=== PATIENT | female | born 1950 | race Caucasian/White ===

== ENCOUNTER → 2018-10-03 | Outpatient (CLI) | payer MEDICARE ==
--- NOTE | 2018-10-04 11:37 | MM ---
Reason for exam: screening (asymptomatic). Last mammogram was performed 1 year and 2 months ago. History: Taking estrogen for 8 years. Physical Findings: A clinical breast exam by your physician is recommended on an annual basis and results should be correlated with mammographic findings. MG 3D Screening Mammo W/Cad Bilateral CC and MLO view(s) were taken. Prior study comparison: July 23, 2017, mammogram, performed at [facility]. June 21, 2016, mammogram, performed at [facility]. The breast tissue is heterogeneously dense. This may lower the sensitivity of mammography. There are benign appearing round calcifications bilaterally. There is no discrete abnormality. ASSESSMENT: Benign, BI-RAD 2 RECOMMENDATION: Routine screening mammogram of both breasts in 1 year.
== END | disposition home or self-care (01) ==
LOC: RADMAMWWP 07:37
PROVIDERS: ATTEND Family Medicine
DX: Z12.31 Encounter for screening mammogram for malignant neoplasm of breast (principal)
CPT/HCPCS: 77063; 77067

== ENCOUNTER → 2020-02-05 | Outpatient (CLI) | payer MEDICARE ==
--- NOTE | 2020-02-06 13:58 | MM ---
Reason for exam: screening (asymptomatic). Last mammogram was performed 1 year and 4 months ago. History: Taking estrogen for 8 years. Physical Findings: A clinical breast exam by your physician is recommended on an annual basis and results should be correlated with mammographic findings. MG 3D Screening Mammo W/Cad Bilateral CC and MLO view(s) were taken. Prior study comparison: October 03, 2018, bilateral MG 3d screening mammo w/cad. July 23, 2017, mammogram, performed at [facility]. The breast tissue is heterogeneously dense. This may lower the sensitivity of mammography. No significant changes when compared with prior studies. ASSESSMENT: Benign, BI-RAD 2 RECOMMENDATION: Routine screening mammogram of both breasts in 1 year.
== END | disposition home or self-care (01) ==
LOC: RADMAMWWP 10:03
PROVIDERS: ATTEND Family Medicine
DX: Z12.31 Encounter for screening mammogram for malignant neoplasm of breast (principal)
CPT/HCPCS: 77063; 77067

== ENCOUNTER 2020-12-31 15:43 | Inpatient (IN) | payer MEDICARE ==
[2020-12-31] MEDS ORDERED: MORPHINE SULFATE 4 MG/ML SYRINGE IV STA (16:40)
[2020-12-31] MEDS ORDERED: ONDANSETRON 4 MG/2 ML VIAL IVP STA (16:40)
--- NOTE | 2020-12-31 16:42 | ED ---
General Adult HPI - General Chief complaint: Fall Stated complaint: fall hip pain Time Seen by Provider: 12/31/20 16:17 Source: patient, EMS Mode of arrival: EMS Limitations: physical limitation - History of Present Illness Initial comments: Dictation was produced using [employer] dictation software. please excuse any grammatical, word or spelling errors. Chief Complaint: 70-year-old female past nuchal history of diabetes presents with right hip pain. History of Present Illness: This 70-year-old female she was cleaning up her house that she just sold. She was in the palmar movement boxes when she took a step and lost her balance. She tripped over some PVC piping. She landed laterally on her right side. She states she noticed immediate pain to the right hip. She was unable to stand. Event occurred approximately 3 PM. EMS was called patient is brought to the emergency room. Prior to arrival patient was given some Zofran and fentanyl. Patient has any numbness and paresthesias to the lower extremity. The ROS documented in this emergency department record has been reviewed and confirmed by me. Those systems with pertinent positive or negative responses have been documented in the HPI. All other systems are other negative and/or noncontributory. PHYSICAL EXAM: General Impression: Alert and oriented x3, not in acute distress HEENT: Normocephalic atraumatic, extra-ocular movements intact, pupils equal and reactive to light bilaterally, mucous membranes moist. Cardiovascular: Heart regular rate and rhythm Chest: Able to complete full sentences, no retractions, no tachypnea Abdomen: abdomen soft, non-tender, non-distended, no organomegaly Musculoskeletal: Pulses present and equal in all extremities, no peripheral edema Motor: no focal deficits noted Right lower extremity: Shortened right lower extremity compared to the left, there is tenderness to palpation over the right hip joint Neurological: CN II-XII grossly intact, no focal motor or sensory deficits noted Skin: Intact with no visualized rashes Psych: Normal affect and mood ED course: 70-year-old female presents to the emergency department for hip pain after fall. Vital signs upon arrival are within acceptable limits. X-ray of the hip shows laterally displaced intertrochanteric fracture of the right femur with foreshortening. Chest x-ray is unremarkable. Case is discussed with Ortho Dr. Vee requested placing patient in a traction splint. He also requested that patient be admitted to his service with consultation to medicine for medical clearance. Patient agreeable plan. - Related Data Home Medications Medication Instructions Recorded Confirmed Aspirin EC [Ecotrin Low Dose] 81 mg PO DAILY 12/31/20 12/31/20 Hernán/D3/Mag11/Zinc/Traffic Manager/Leonard/Bor 1 tab PO BID 12/31/20 12/31/20 [Caltrate 600+D Plus Tablet] Cholecalciferol [Vitamin D3 (25 25 mcg PO Q48H 12/31/20 12/31/20 Mcg = 1000 Iu)] Citalopram Hydrobromide [CeleXA] 10 mg PO DAILY 12/31/20 12/31/20 Fenofibrate [Lofibra] 160 mg PO DAILY 12/31/20 12/31/20 L.acidoph,Paracasei, B.lactis 1 cap PO BID 12/31/20 12/31/20 [Probiotic] Levothyroxine Sodium [Synthroid] 125 mcg PO DAILY 12/31/20 12/31/20 Mv-Min/Folic/Vit K/Lut/Ylik350 1 tab PO DAILY 12/31/20 12/31/20 [Alive Women's 50 Plus Tablet] Omeprazole 20 mg PO Q48H 12/31/20 12/31/20 Turmeric Root Extract [Turmeric] 500 mg PO DAILY 12/31/20 12/31/20 buPROPion HCL [Wellbutrin XL] 150 mg PO DAILY 12/31/20 12/31/20 estradioL [estradioL (Once Weekly) 1 patch TRANSDERM Q7D 12/31/20 12/31/20 0.05 mg Patch] metFORMIN HCL [Glucophage] 1,000 mg PO BID 12/31/20 12/31/20 sitaGLIPtin [Januvia] 100 mg PO DAILY 12/31/20 12/31/20 Allergies Allergy/AdvReac Type Severity Reaction Status Date / Time hydrocodone [From Vicodin] Allergy Confusion Verified 12/31/20 17:58 Penicillins Allergy Unknown Verified 12/31/20 17:58 Sulfa (Sulfonamide Allergy Rash/Hives Verified 12/31/20 17:58 Antibiotics) Review of Systems ROS Statement: Those systems with pertinent positive or pertinent negative responses have been documented in the HPI. ROS Other: All systems not noted in ROS Statement are negative. Past Medical History Past Medical History: Diabetes Mellitus History of Any Multi-Drug Resistant Organisms: None Reported Past Surgical History: Cholecystectomy, Hysterectomy, Orthopedic Surgery Additional Past Surgical History / Comment(s): lt knee Past Psychological History: Anxiety Smoking Status: Never smoker Past Alcohol Use History: None Reported Past Drug Use History: None Reported General Exam Limitations: physical limitation Course Vital Signs 12/31/20 16:09 Temperature 98.8 F Pulse Rate 70 Respiratory 18 Rate Blood Pressure 135/52 O2 Sat by Pulse 94 L Oximetry Disposition Clinical Impression: Fall, Hip fracture Disposition: ADMITTED IP TO THIS HOSP Condition: Fair Referrals: Omid Christian MD [Primary Care Provider] - 1-2 days
--- NOTE | 2020-12-31 17:38 | XR ---
EXAMINATION TYPE: XR chest 1V DATE OF EXAM: 12/31/2020 COMPARISON: NONE HISTORY: Fall TECHNIQUE: Single frontal view of the chest is obtained. FINDINGS: There is no focal air space opacity, pleural effusion, or pneumothorax seen. The cardiac silhouette size is within normal limits. Elevation of the right hemidiaphragm. The osseous structur es are intact. IMPRESSION: No acute process.
--- NOTE | 2020-12-31 17:48 | XR ---
EXAMINATION TYPE: XR Hip RT and AP Pelvis, XR femur RT DATE OF EXAM: 12/31/2020 COMPARISON: None HISTORY: Fall TECHNIQUE: A single AP view of the pelvis is obtained. Two views of the right femur and hip are obtai nurys. FINDINGS: Femur: There is intertrochanteric fracture of the right femur with one shaft width of lateral displac ement of the distal fracture fragment. There is approximately 5 cm of foreshortening Hip: Two views of right hip show no acute fracture or dislocation of the right hip joint. IMPRESSION: There is a laterally displaced intertrochanteric fracture of the right femur with foresh ortening.
[2020-12-31] MEDS ORDERED: ONDANSETRON 4 MG/2 ML VIAL IVP PRN (18:36)
[2020-12-31] MEDS ORDERED: NALOXONE 0.4 MG/ML 1 ML VIAL IV PRN (18:36)
[2020-12-31 19:44] LABS: Basophils % (A) 0 %; Eosinophils # (A) 0.1 k/uL (0-0.7); Eosinophils % (A) 1 %; HCT 34.2 % (34.0-46.0); HGB 11.1 gm/dL (11.4-16.0); Lymphocytes # (A) 0.6 k/uL (1.0-4.8); Lymphocytes % (A) 7 %; MCH 28.9 pg (25.0-35.0); MCHC 32.5 g/dL (31.0-37.0); Mean Platelet Volume 7.2; Monocytes # (A) 0.4 k/uL (0-1.0); Monocytes % (A) 5 %; Neutrophils # (A) 7.6 k/uL (1.3-7.7); Neutrophils % (A) 86 %; Platelet Count 376 k/uL (150-450); RBC 3.84 m/uL (3.80-5.40); RDW 14.3 % (11.5-15.5); WBC 8.9 k/uL (3.8-10.6)
[2020-12-31] MEDS ORDERED: TRANEXAMIC ACID 1,000 MG in SODIUM CHLORIDE 0.9% 100 ML IVPB ONE (19:46)
[2020-12-31] MEDS: MORPHINE SULFATE 4 MG/ML SYRINGE IV PRN (19:47)
[2020-12-31] MEDS ORDERED: ROPIVACAINE/EPI/CLONIDINE/KET 50 ML SYRINGE MISCELLANE PRN (19:47)
[2020-12-31] MEDS: SODIUM CHLORIDE 0.9% 1,000 ML IV SCH (19:48)
[2020-12-31 19:53] LABS: Calcium 9.1 mg/dL (8.4-10.2); Potassium 3.9 mmol/L (3.5-5.1)
[2020-12-31 19:58] LABS: Prothrombin Time 10.4 sec (9.0-12.0)
[2020-12-31 20:15] LABS: Partial Thromboplastin Time 21.4 sec (22.0-30.0)
--- NOTE | 2020-12-31 22:26 | P.HPOR ---
History of Present Illness H&P Date: 12/31/20 This patient is a 70- year old female with a past medical history of diabetes that presented to [facility] emergency department on 12/31/20 with complaints of right hip pain following a grounf level fall. Patient states she was cleaning her house she just sold. She states she tripped over a PVC pipe, and lost her balance and fell directly onto the right hip. She experienced immediate pain and was unable to get off the ground. EMS was called and the patient was transported to [facility]. X-rays in the emergency department revealed a right displaced intertrochanteric hip fracture. Patient was admitted under the care of Dr. Vee with a consult placed to internal medicine for pre-operative medical clearance. Patient is seen and examined bedside this evening. Patient states her right hip pain is currently well-controlled. She denies pain or injury besides her right hip. Patient has a history of left TKA performed by Dr. Leos in 2005. Patient is not on blood thinners. Her last hemoglobin A1C was around 7. She denies chest pain, shortness of breath, nausea. She denies numbness or tingling of the right lower extremity. Vital signs stable. Past Medical History Past Medical History: Diabetes Mellitus History of Any Multi-Drug Resistant Organisms: None Reported Past Surgical History: Cholecystectomy, Hysterectomy, Orthopedic Surgery Additional Past Surgical History / Comment(s): lt knee Past Psychological History: Anxiety Smoking Status: Never smoker Past Alcohol Use History: None Reported Past Drug Use History: None Reported Medications and Allergies Home Medications Medication Instructions Recorded Confirmed Type Aspirin EC [Ecotrin Low Dose] 81 mg PO DAILY 12/31/20 12/31/20 History Hernán/D3/Mag11/Zinc/Project Development Coordinator/Leonard/Bor 1 tab PO BID 12/31/20 12/31/20 History [Caltrate 600+D Plus Tablet] Cholecalciferol [Vitamin D3 (25 25 mcg PO Q48H 12/31/20 12/31/20 History Mcg = 1000 Iu)] Citalopram Hydrobromide [CeleXA] 10 mg PO DAILY 12/31/20 12/31/20 History Fenofibrate [Lofibra] 160 mg PO DAILY 12/31/20 12/31/20 History L.acidoph,Paracasei, B.lactis 1 cap PO BID 12/31/20 12/31/20 History [Probiotic] Levothyroxine Sodium [Synthroid] 125 mcg PO DAILY 12/31/20 12/31/20 History Mv-Min/Folic/Vit K/Lut/[id number] 1 tab PO DAILY 12/31/20 12/31/20 History [Alive Women's 50 Plus Tablet] Omeprazole 20 mg PO Q48H 12/31/20 12/31/20 History Turmeric Root Extract [Turmeric] 500 mg PO DAILY 12/31/20 12/31/20 History buPROPion HCL [Wellbutrin XL] 150 mg PO DAILY 12/31/20 12/31/20 History estradioL [estradioL (Once Weekly) 1 patch TRANSDERM Q7D 12/31/20 12/31/20 History 0.05 mg Patch] metFORMIN HCL [Glucophage] 1,000 mg PO BID 12/31/20 12/31/20 History sitaGLIPtin [Januvia] 100 mg PO DAILY 12/31/20 12/31/20 History Allergies Allergy/AdvReac Type Severity Reaction Status Date / Time hydrocodone [From Vicodin] Allergy Confusion Verified 12/31/20 17:58 Penicillins Allergy Unknown Verified 12/31/20 17:58 Sulfa (Sulfonamide Allergy Rash/Hives Verified 12/31/20 17:58 Antibiotics) Physical Examination On examination, patient is laying in bed in no apparent distress. She is alert and orientated x3. Her head appears normocephalic and atrauamtic. Her breathing appears non-labored. Bilateral upper extremities show no obvious deformities or signs of trauma. Left lower extremity show no obvious deformities or signs of trauma. Healed incision of the left knee consistent with prior TKA. On inspection of the right hip, there are no open wounds or lacerations. Right lower extremity is shortened and externally rotated. Pain with palpation of the hip and thigh. Thigh is soft and compressible. Knee, lower leg, ankle, foot are non-tender. ROM of the hip is not tested at this time. Patient has good strength and ROM of the right ankle. Motor and sensory function intact right lower ext remity. Dorsalis pedis pulse palpable, the right lower extremity is warm and well perfused. Calves are soft and non-tender to palpation bilaterally. Results Right hip x-ray 12/31/20: Right displaced intertrochanteric hip fracture. - Labs Labs: Abnormal Lab Results - Last 24 Hours (Table) 12/31/20 12/31/20 12/31/20 Range/Units 19:35 19:35 19:41 Hgb 11.1 L (11.4-16.0) gm/dL Lymphocytes # 0.6 L (1.0-4.8) k/uL APTT 21.4 L (22.0-30.0) sec BUN 21 H (7-17) mg/dL Glucose 159 H (74-99) mg/dL H & H 12/31/20 Range/Units 19:41 Hgb 11.1 L (11.4-16.0) gm/dL Hct 34.2 (34.0-46.0) % Coagulation 12/31/20 Range/Units 19:35 INR 1.0 (<1.2) Result Diagrams: 12/31/20 19:41 12/31/20 19:35 Assessment and Plan Assessment: Right displaced intertrochanteric hip fracture Plan: - The clinical and imaging findings were discussed with the patient. The patient was discussed with Dr. Vee. Recommend surgical fixation of the right intertrochanteric hip fracture with a short gamma nail. Surgical risks were disc ussed, patient gave verbal consent for surgery. We will plan for surgery tomorrow morning, pending medical clearance. - Internal medicine has been consulted for pre-operative medical clearance. - Pain management as needed. - NPO diet at midnight.
[2021-01-01] MEDS: MORPHINE SULFATE 4 MG/ML SYRINGE IV PRN ×3 (01:57→20:41)
[2021-01-01] MEDS ORDERED: ZOLPIDEM 5 MG TAB PO PRN (02:12)
--- NOTE | 2021-01-01 02:35 | P.CONS ---
History of Present Illness - Reason for Consult Consult date: 12/31/20 pre op medical clearance Requesting physician: Garo Vee - Chief Complaint right hip pain - History of Present Illness 70-year-old female with diabetes mellitus with A1c of 7 She was cleaning her house today when she tripped with some PVC pipes and fell at ground level she hit her right side and immediately was unable to get up due to pain and called EMS and was brought to the hospital she denies any associated head injury or loss of consciousness she denies any history of falling. She is not on any blood thinners. She denies any associated palpitations shortness of breath dizziness or lightheadedness. She thinks the fall was purely accidental. She reports that she is in good health denies any recent history of heart attack CHF seizures arrhythmia or palpitations. She is an active person able to do house chores and climb 2 flights of stairs with no limitations she denies any exertional dyspnea or anginal-like symptoms. In the ED she was evaluated and was found to have right femur intertrochanteric fracture she is admitted to surgery and medicine consult. For preop clearance Review of Systems Pertinent positives as noted in HPI. All other systems were reviewed and are negative Past Medical History Past Medical History: Diabetes Mellitus History of Any Multi-Drug Resistant Organisms: None Reported Past Surgical History: Cholecystectomy, Hysterectomy, Orthopedic Surgery Additional Past Surgical History / Comment(s): lt knee Past Psychological History: Anxiety Smoking Status: Never smoker Past Alcohol Use History: None Reported Past Drug Use History: None Reported - Past Family History Family Family Medical History: No Reported History Medications and Allergies Home Medications Medication Instructions Recorded Confirmed Type Aspirin EC [Ecotrin Low Dose] 81 mg PO DAILY 12/31/20 12/31/20 History Hernán/D3/Mag11/Zinc/Business Consultant/Leonard/Bor 1 tab PO BID 12/31/20 12/31/20 History [Caltrate 600+D Plus Tablet] Cholecalciferol [Vitamin D3 (25 25 mcg PO Q48H 12/31/20 12/31/20 History Mcg = 1000 Iu)] Citalopram Hydrobromide [CeleXA] 10 mg PO DAILY 12/31/20 12/31/20 History Fenofibrate [Lofibra] 160 mg PO DAILY 12/31/20 12/31/20 History L.acidoph,Paracasei, B.lactis 1 cap PO BID 12/31/20 12/31/20 History [Probiotic] Levothyroxine Sodium [Synthroid] 125 mcg PO DAILY 12/31/20 12/31/20 History Mv-Min/Folic/Vit K/Lut/Vokl650 1 tab PO DAILY 12/31/20 12/31/20 History [Alive Women's 50 Plus Tablet] Omeprazole 20 mg PO Q48H 12/31/20 12/31/20 History Turmeric Root Extract [Turmeric] 500 mg PO DAILY 12/31/20 12/31/20 History buPROPion HCL [Wellbutrin XL] 150 mg PO DAILY 12/31/20 12/31/20 History estradioL [estradioL (Once Weekly) 1 patch TRANSDERM Q7D 12/31/20 12/31/20 History 0.05 mg Patch] metFORMIN HCL [Glucophage] 1,000 mg PO BID 12/31/20 12/31/20 History sitaGLIPtin [Januvia] 100 mg PO DAILY 12/31/20 12/31/20 History Allergies Allergy/AdvReac Type Severity Reaction Status Date / Time hydrocodone [From Vicodin] Allergy Confusion Verified 12/31/20 17:58 Penicillins Allergy Unknown Verified 12/31/20 17:58 Sulfa (Sulfonamide Allergy Rash/Hives Verified 12/31/20 17:58 Antibiotics) Physical Exam Vitals: Vital Signs Temp Pulse Resp BP Pulse Ox 12/31/20 19:14 98.2 F 88 18 145/61 99 12/31/20 16:09 98.8 F 70 18 135/52 94 L Intake and Output 12/31/20 12/31/20 12/31/20 06:59 14:59 22:59 Other: Weight 78.018 kg Constitutional: No acute distress, conversant, pleasant Eyes: Anicteric sclerae, moist conjunctiva, Pupils equal round reactive to light ENMT: NC/AT Oropharynx clear, no erythema, or exudates Neck: Supple, FROM, no masses, or JVD No carotid bruits No thyromegaly Lungs: Clear to auscultation Clear to percussion Normal respiratory effort, no accessory muscle use Cardiovascular: Heart regular in rate and rhythm, No murmurs, gallops, or rubs No peripheral edema Abdominal: Soft Nontender, no guarding, rebound or rigidity Abdomen moving with respiration Normoactive bowel sounds No hepatomegaly, No splenomegaly No palpable mass No abdominal wall hernia noted Skin: Normal temperature, tone, texture, turgor No induration No subcutaneous nodules No rash, lesions No ulcers Extremities: Right hip there is no open wounds or cuts no bruising soft to the touch no swelling, capillary refill is immediate No digital cyanosis No clubbing Pedal pulses intact and symmetrical Radial pulses intact and symmetrical No calf tenderness Psychiatric: Alert and oriented to person, place and time Appropriate affect fair judgement Neuro Muscles Strength 5/5 in bilateral upper extremity and left lower extremity. Right lower extremity is limited exam due to fracture of the right hip Sensation to light touch grossly present throughout Cranial nerves II-XII grossly intact No focal sensory deficits Lymphatics: no palpable cervical or supraclavicular , or inguinal lymph nodes Results CBC & Chem 7: 12/31/20 19:41 12/31/20 19:35 Labs: Abnormal Lab Results - Last 24 Hours (Table) 12/31/20 12/31/20 12/31/20 Range/Units 19:35 19:35 19:41 Hgb 11.1 L (11.4-16.0) gm/dL Lymphocytes # 0.6 L (1.0-4.8) k/uL APTT 21.4 L (22.0-30.0) sec BUN 21 H (7-17) mg/dL Glucose 159 H (74-99) mg/dL Assessment and Plan Assessment: Acute right femoral intertrochanteric fracture Management per orthopedics, anticoagulation and pain control. Nothing by mouth after midnight in anticipation of surgery Mild anemia hemoglobin 11.1 Patient denies any GI bleeding Diabetes mellitus with A1c of 7 Continue with insulin sliding scale Patient is full code patient is 70year old Female, presetned with right hip pain found to have right femoral intertrochanteric fracture. Patient denies any recent history or symptoms of congestive heart failure, mycardial infarction, syncope, arrhythmia, palpitation, or exertional dyspnea. Patient denies any past medical history of stroke, CAD, CHF, CKD. Patient does have history of diabetes mellitus. Patient is functional at baseline at >4 METs she is able to climb two flight of stairs with no limitations, she is able to perform house chores. Patient labs reviewed, EKG reviewed showed normal sinus rhythm. Patient is scheduled for orthopedic surgery to fix left hip fracture. This is of moderate risk, with past medical history of diabetes mellitus. Patient can proceed to surgery with moderate but acceptable perioperative cardiovascular risk factors. This has been explained to the patient , all questions answered, patient verbalized understanding and agreement.
[2021-01-01] MEDS: SODIUM CHLORIDE 0.9% 1,000 ML IV SCH ×3 (03:13→18:06)
[2021-01-01] MEDS ORDERED: ROPIVACAINE 246.25 MG, EPINEPHrine 0.5 MG, KETOROLAC 30 MG, cloNIDine HCL/PF 80 MCG, WA... MISCELLANE PRN ×5 (05:00)
[2021-01-01] MEDS ORDERED: TRANEXAMIC ACID 1,000 MG in SODIUM CHLORIDE 0.9% 100 ML IVPB PRN (06:00)
[2021-01-01 07:36] LABS: Glucose,Whole Blood 124 mg/dL (75-99)
[2021-01-01] MEDS: INSULIN ASPART (NovoLOG) 100 UNIT/ML VIAL SQ SCH ×3 (07:59→16:32)
[2021-01-01] MEDS: LEVOTHYROXINE 125 MCG TAB PO SCH (08:03)
[2021-01-01] MEDS ORDERED: NEOSTIGMINE 1 MG/ML 10 ML VIAL ONE (08:55)
[2021-01-01] MEDS ORDERED: ROCURONIUM 10 MG/ML (5 ML VIAL) IV ONE (08:55)
[2021-01-01] MEDS ORDERED: PROPOFOL 10 MG/ML 20 ML VIAL IV ONE (08:55)
[2021-01-01] MEDS ORDERED: GLYCOPYRROLATE 0.2 MG/ML 2 ML VIAL ONE (08:55)
[2021-01-01] MEDS ORDERED: ONDANSETRON 4 MG/2 ML VIAL ONE (08:55)
[2021-01-01] MEDS ORDERED: SODIUM CHLORIDE 0.9% 100 ML BAG ONE (08:55)
[2021-01-01] MEDS ORDERED: MIDAZOLAM 2 MG/2 ML VIAL ONE (08:55)
[2021-01-01] MEDS ORDERED: TRANEXAMIC ACID 1,000 MG/10 ML VIAL ONE (08:55)
[2021-01-01] MEDS ORDERED: LIDOCAINE 1% INJ 10MG/ML (20 ML MDV) ONE (08:55)
[2021-01-01] MEDS ORDERED: PHENYLEPHRINE-0.9% NACL SYG 1,000 MCG/10 ML SYRINGE ONE (08:55)
[2021-01-01] MEDS ORDERED: ePHEDrine SULFATE/0.9% NACL/PF 50 MG/5 ML SYRINGE IV ONE (08:55)
[2021-01-01] MEDS ORDERED: SUCCINYLCHOLINE CHLORIDE 100 MG/5 ML SYR IV ONE (08:55)
[2021-01-01] MEDS ORDERED: fentaNYL (PF) 50 MCG/ML 2 ML AMP ONE (08:55)
[2021-01-01] MEDS ORDERED: SODIUM CHLORIDE 0.9% 1,000 ML IV ONE (09:00)
[2021-01-01] MEDS ORDERED: SODIUM CHLORIDE 0.9% 100 ML with ceFAZolin 2,000 MG IV ONE ×2 (09:10)
[2021-01-01] MEDS ORDERED: LACTATED RINGERS 1,000 ML IV ONE ×2 (10:04)
[2021-01-01] MEDS ORDERED: HYDROcodone/APAP 5-325MG 1 EACH TAB PO PRN ×2 (11:27)
[2021-01-01] MEDS ORDERED: HYDROmorphone 0.2 MG/1 ML SYRINGE IVP PRN (11:27)
[2021-01-01] MEDS ORDERED: HYDROmorphone 0.5 MG/0.5 ML SYRINGE IVP PRN ×2 (11:27)
[2021-01-01] MEDS ORDERED: hydrOXYzine pamoate 25 MG CAP PO PRN (11:27)
--- NOTE | 2021-01-01 11:28 | P.PN ---
Subjective Progress Note Date: 01/01/21 Patient is scheduled for surgery today. No acute events overnight. Objective - Vital Signs Vital signs: Vital Signs Temp 98.5 F 01/01/21 08:00 Pulse 64 01/01/21 08:00 Resp 18 01/01/21 08:00 BP 117/58 01/01/21 08:00 Pulse Ox 98 01/01/21 08:00 Intake & Output 12/31/20 01/01/21 01/01/21 18:59 06:59 18:59 Intake Total 1300 Output Total 950 700 Balance -950 600 Weight 78.018 kg 78.018 kg Intake: IV 1300 Output: Urine 950 600 Estimated Blood Loss 100 Other: Voiding Method Indwelling Catheter Indwelling Catheter - Exam General: The patient is awake and alert, in no distress Eye: there is normal conjunctiva bilaterally. Neck: The neck is supple, there is no JVD. Cardiovascular: Normal S1-S2, no S3-S4, no murmurs. Respiratory: Lungs clear to auscultation bilaterally Gastrointestinal: Abdomen is soft, nontender Musculoskeletal: There is no pedal edema. Neurological:. Speech is normal. Skin: Skin is warm and dry - Labs CBC & Chem 7: 12/31/20 19:41 12/31/20 19:35 Labs: Abnormal Lab Results - Last 24 Hours (Table) 12/31/20 12/31/20 12/31/20 Range/Units 19:35 19:35 19:41 Hgb 11.1 L (11.4-16.0) gm/dL Lymphocytes # 0.6 L (1.0-4.8) k/uL APTT 21.4 L (22.0-30.0) sec BUN 21 H (7-17) mg/dL Glucose 159 H (74-99) mg/dL POC Glucose (mg/dL) (75-99) mg/dL 01/01/21 Range/Units 07:35 Hgb (11.4-16.0) gm/dL Lymphocytes # (1.0-4.8) k/uL APTT (22.0-30.0) sec BUN (7-17) mg/dL Glucose (74-99) mg/dL POC Glucose (mg/dL) 124 H (75-99) mg/dL Assessment and Plan Assessment: 70-year-old female with past medical history noted below that presented to the emergency room after sustaining a mechanical fall at home. In the ED she was evaluated and was found to have right femur intertrochanteric fracture she is admitted to orthopedic surgery with medicine consult. Acute right femoral intertrochanteric fracture Management per orthopedics, anticoagulation and pain control. Plan for surgery today Mild anemia hemoglobin 11.1 Patient denies any GI bleeding We'll continue to monitor closely Diabetes mellitus with A1c of 7 Continue with insulin sliding scale Patient is full code
--- NOTE | 2021-01-01 11:35 | P.OP ---
Date of Procedure: 01/01/21 Preoperative Diagnosis: 1. Right completely displaced intertrochanteric hip fracture 2. Type 2 diabetes on metformin Postoperative Diagnosis: Same Procedure(s) Performed: Operative fixation of right intertrochanteric hip fracture with short intramedullary hip screw Anesthesia: KARIME Surgeon: Garo Vee Medical Record Assistant #1: Henok Cancino Estimated Blood Loss (ml): 200 IV fluids (ml): 1,200 Pathology: none sent Condition: stable Disposition: PACU Indications for Procedure: The patient is a very pleasant 70-year-old female with a medical history significant for type 2 diabetes who while moving yesterday sustained a ground- level fall resulting in a displaced intertrochanteric hip fracture. She was seen in our emergency department, found to have a hip fracture and admitted under my care. She was seen preoperatively by internal medicine and cleared for surgery. I met with the patient this morning to discuss treatment options. My recommendation was to proceed with operative fixation with a short intramedullary hip screw. We also discussed that her fracture was an irreducible variant that may require a formal open reduction. She understood this. We discussed the potential risks and complications of surgery including but certainly not limited to risks from anesthesia, infection, delayed wound healing, damage to local blood vessels or nerves, nonunion, malunion, hardware collapse, progression of hip arthritis, need for further surgery, symptomatically hardware, DVT, PE, other medical complications, and inability to regain preinjury level of function, dissatisfaction with her surgical outcome, and possibly loss of life or limb. The patient also understands and acknowledges that other, less common complications are possible. She provided both her verbal and written consent to go forward with surgery. Description of Procedure: The patient was identified in preoperative holding and the correct operative extremity was marked with my initials. I reviewed the procedure with the patient and all of their questions were answered. The patient was then brought back to the operating room by anesthesia. She was given preoperative antibiotics and a general anesthesia on her stretcher. Ángela table boots were placed on her feet. She was carefully transferred onto the Ángela table and a perineal post was placed. The right arm was draped across her quality to facilitate intraoperative positioning and secured with a pillow and tape. The left arm was placed in the well-padded arm curtis. The left leg was scissored with Marydel table an abductor. A timeout was performed identifying the correct patient, operative extremity, and procedure. A provisional reduction was then performed using traction, internal rotation, and slight adduction. Fluoroscopy was brought in and on an AP view the fracture appeared relatively well reduced with mild distraction to the fracture site. The lateral view showed almost anatomic reduction. The right leg was then prepped and draped in the standard sterile fashion. I began by making a small 3 cm incision just proximal to the tip of the greater trochanter in line with the femur. An awl was placed just medial to the tip of the greater trochanter on the AP view and colinear with the canal on the lateral view. A 3.2 mm guide pin was advanced down to the proximal femur. An opening reamer was placed over the guidepin and brought down to the tip of the greater trochanter. As the reamer was turned on it was medial to the fracture line but it did show some displacement of the inferior femoral neck. A longitudinal incision was made over the lateral femur and a bone hook was placed around the medial aspect of the neck to hold the reduction. The opening reamer was then passed easily down to the proximal canal. The opening reamer 3.2 mm guide pin were removed and a long ball-tipped guidewire was placed and verified with biplanar fluoroscopy. I then sequentially reamed up to 12-1/2 mm and dispensed a short 11 mm diameter nail. This was placed over the guidewire and countersunk so that the lag screw would be in the low center position on the femoral head. The triple sleeve was placed the targeting arm in a incision was made over the lateral femur. The triple sleeve was brought up the lateral cortex of the femur and a guidepin was placed in the low center position on the AP view and in the center to slightly posterior position on the lateral view. This was reamed and a partially threaded lag screw was placed, again using the bone hook to hold reduction while the screw was fully seated. Finally distal interlocking screw was placed using the targeting arm and a triple sleeve. Final fluoroscopic images were taken. All wounds were thoroughly irrigated, injected with local anesthetic, and closed in layers. All instrument, sponge, and sharp counts were correct. Sterile dressings were applied. The patient was then carefully taken off the Marydel table, transferred to a gurney, extubated, and brought to recovery having tolerated the procedure well. Henok Cancino PA-C was required as a skilled assistant printer floor covering due to the complexity of the procedure, specifically requiring open reduction. Plan: The patient can weight-bear as tolerated on her right leg. 2 doses postoperative antibiotics. DVT prophylaxis with aspirin. Internal medicine for perioperative medical management. Discharge planning.
[2021-01-01 12:07] LABS: Glucose,Whole Blood 153 mg/dL (75-99)
[2021-01-01 12:21] LABS: Glucose,Whole Blood 167 mg/dL (75-99)
[2021-01-01] MEDS: LACTATED RINGERS 1,000 ML IV SCH ×2 (12:24→20:38)
[2021-01-01 12:55] LABS: Basophils % (A) 0 %; Eosinophils % (A) 0 %; HCT 32.2 % (34.0-46.0); Lymphocytes # (A) 0.5 k/uL (1.0-4.8); Lymphocytes % (A) 7 %; MCH 29.1 pg (25.0-35.0); MCHC 31.1 g/dL (31.0-37.0); MCV 93.6 fL (80.0-100.0); Mean Platelet Volume 7.1; Monocytes # (A) 0.4 k/uL (0-1.0); Monocytes % (A) 6 %; Neutrophils # (A) 6.3 k/uL (1.3-7.7); Neutrophils % (A) 86 %; Platelet Count 333 k/uL (150-450); RBC 3.45 m/uL (3.80-5.40); RDW 13.9 % (11.5-15.5); WBC 7.2 k/uL (3.8-10.6)
--- NOTE | 2021-01-01 14:11 | FL ---
Fluoroscopy HISTORY: Open reduction internal fixation 3.4 minutes fluoroscopy time supplied to the referring clinician. 9 intraoperative C-arm images docu ment the procedure. See dictated report from orthopedic surgery.
[2021-01-01 16:34] LABS: Glucose,Whole Blood 135 mg/dL (75-99)
[2021-01-01] MEDS: ASPIRIN 81 MG PO SCH (20:36)
[2021-01-01] MEDS: SENNOSIDES-DOCUSATE SODIUM 1 EACH TAB PO SCH (20:37)
[2021-01-01 20:49] LABS: Glucose,Whole Blood 205 mg/dL (75-99)
[2021-01-01] MEDS ORDERED: INSULIN ASPART (NovoLOG) 100 UNIT/ML VIAL SQ ONE (21:51)
[2021-01-02] MEDS: SODIUM CHLORIDE 0.9% 1,000 ML IV SCH (01:15)
[2021-01-02] MEDS ORDERED: IBUPROFEN 400 MG TAB PO PRN (01:27)
[2021-01-02] MEDS: LEVOTHYROXINE 125 MCG TAB PO SCH (05:47)
[2021-01-02 06:51] LABS: Glucose,Whole Blood 147 mg/dL (75-99)
[2021-01-02] MEDS: LACTATED RINGERS 1,000 ML IV SCH (07:22)
[2021-01-02] MEDS: INSULIN ASPART (NovoLOG) 100 UNIT/ML VIAL SQ SCH ×3 (08:30→17:55)
[2021-01-02] MEDS: ASPIRIN 81 MG PO SCH ×2 (08:30→21:01)
[2021-01-02] MEDS: MORPHINE SULFATE 4 MG/ML SYRINGE IV PRN ×2 (08:30→14:14)
--- NOTE | 2021-01-02 09:59 | P.PN ---
Subjective Progress Note Date: 01/02/21 This patient is a 70-year-old female who is status-post operative fixation of right intertrochanteric hip fracture with short intramedullary hip screw on 01/01/[address] Vee. Today's post-operative day #1. The patient is seen and examined bedside. The patient states she is experiencing mild pain in the right hip, although this is well-controlled. She states she believes the [place] is making her itchy. She denies trouble breathing or shortness of breath. Patient is up to the bedside chair this morning. She states she overall feels well. She tolerated her breakfast well. She denies chest pain, shortness breath, nausea, vomiting, fevers, chills. She denies numbness or tingling of the right lower extremity. Vital signs stable. Objective - Vital Signs Vital signs: Vital Signs Temp 98.5 F 01/02/21 08:00 Pulse 76 01/02/21 08:00 Resp 18 01/02/21 08:00 BP 126/67 01/02/21 08:00 Pulse Ox 93 L 01/02/21 08:00 Intake & Output 01/01/21 01/02/21 01/02/21 18:59 06:59 18:59 Intake Total 1300 Output Total 850 750 Balance 450 -750 Intake: IV 1300 Output: Urine 750 750 Estimated Blood Loss 100 Other: Voiding Method Indwelling Catheter Indwelling Catheter - Exam On examination, the patient is sitting up in the bedside chair in no apparent distress. She is alert and oriented 3. On inspection of the right hip, there are 3 clean, dry, intact surgical dressings in place. No bleeding or drainage through the dressing. Mild swelling of the thigh, thigh is soft and compressible. Patient is has good strength and range of motion of the right ankle. Motor and sensory function is intact of the right lower extremity. Dorsalis pedis pulse +2, right lower extremity is warm and well-perfused. Compression cuffs in place bilaterally. Calves are soft and nontender to palpation bilaterally. - Labs CBC & Chem 7: 01/01/21 12:35 12/31/20 19:35 Labs: Abnormal Lab Results - Last 24 Hours (Table) 01/01/21 01/01/21 01/01/21 Range/Units 12:05 12:20 12:35 RBC 3.45 L (3.80-5.40) m/uL Hgb 10.0 L (11.4-16.0) gm/dL Hct 32.2 L (34.0-46.0) % Lymphocytes # 0.5 L (1.0-4.8) k/uL POC Glucose (mg/dL) 153 H 167 H (75-99) mg/dL 01/01/21 01/01/21 01/02/21 Range/Units 16:32 20:37 06:51 RBC (3.80-5.40) m/uL Hgb (11.4-16.0) gm/dL Hct (34.0-46.0) % Lymphocytes # (1.0-4.8) k/uL POC Glucose (mg/dL) 135 H 205 H 147 H (75-99) mg/dL Assessment and Plan Assessment: Status-post operative fixation of right intertrochanteric hip fracture with short intramedullary hip screw on 01/01/21. Post-operative day #1. Plan: - Weight-bearing as tolerated on operative extremity. Up with assistance, up with a walker. - Physical therapy for gait and balance training. - 2 doses of postoperative antibiotics complete. - Aspirin 81 mg daily for DVT prophylaxis. - Pain management as needed. [place] discontinued. - Internal medicine for maggie-operative medical management. - Case management consulted the for discharge planning.
[2021-01-02 11:26] LABS: Glucose,Whole Blood 140 mg/dL (75-99)
[2021-01-02] MEDS: Acetaminophen-Codeine 300-30mg TAB PO PRN ×2 (12:15→16:22)
[2021-01-02 16:20] LABS: Glucose,Whole Blood 189 mg/dL (75-99)
--- NOTE | 2021-01-02 16:27 | P.PN ---
Subjective Patient is doing fairly well today. She's having difficulty getting out of bed secondary to pain. No acute events overnight reported by nursing staff. Objective - Vital Signs Vital signs: Vital Signs Temp 98.9 F 01/02/21 14:00 Pulse 86 01/02/21 14:00 Resp 19 01/02/21 14:00 BP 143/66 01/02/21 14:00 Pulse Ox 94 L 01/02/21 14:00 Intake & Output 01/01/21 01/02/21 01/02/21 18:59 06:59 18:59 Intake Total 1300 Output Total 850 750 Balance 450 -750 Intake: IV 1300 Output: Urine 750 750 Estimated Blood Loss 100 Other: Voiding Method Indwelling Catheter Indwelling Catheter - Exam General: The patient is awake and alert, in no distress Eye: there is normal conjunctiva bilaterally. Neck: The neck is supple, there is no JVD. Cardiovascular: Normal S1-S2, no S3-S4, no murmurs. Respiratory: Lungs clear to auscultation bilaterally Gastrointestinal: Abdomen is soft, nontender Musculoskeletal: There is no pedal edema. Neurological:. Speech is normal. Skin: Skin is warm and dry - Labs CBC & Chem 7: 01/01/21 12:35 12/31/20 19:35 Labs: Abnormal Lab Results - Last 24 Hours (Table) 01/01/21 01/01/21 01/02/21 Range/Units 16:32 20:37 06:51 POC Glucose (mg/dL) 135 H 205 H 147 H (75-99) mg/dL 01/02/21 01/02/21 Range/Units 11:25 16:19 POC Glucose (mg/dL) 140 H 189 H (75-99) mg/dL Assessment and Plan Assessment: 70-year-old female with past medical history noted below that presented to the emergency room after sustaining a mechanical fall at home. In the ED she was evaluated and was found to have right femur intertrochanteric fracture she is admitted to orthopedic surgery with medicine consult. Acute right femoral intertrochanteric fracture Management per orthopedics, anticoagulation and pain control. Plan for surgery today Mild anemia hemoglobin 11.1 Patient denies any GI bleeding We'll continue to monitor closely Diabetes mellitus with A1c of 7 Continue with insulin sliding scale Patient is full code Discharge planning, PT/OT, possible need for ECF for rehab
[2021-01-02] MEDS: SENNOSIDES-DOCUSATE SODIUM 1 EACH TAB PO SCH (21:01)
[2021-01-03] MEDS: Acetaminophen-Codeine 300-30mg TAB PO PRN ×2 (02:34→11:11)
[2021-01-03] MEDS: LEVOTHYROXINE 125 MCG TAB PO SCH (05:55)
[2021-01-03 06:55] LABS: Glucose,Whole Blood 231 mg/dL (75-99)
[2021-01-03] MEDS: INSULIN ASPART (NovoLOG) 100 UNIT/ML VIAL SQ SCH ×3 (08:36→17:14)
[2021-01-03] MEDS: ASPIRIN 81 MG PO SCH ×2 (08:36→22:06)
[2021-01-03 09:04] LABS: Basophils # (A) 0.03 X 10*3/uL (0.00-0.10); Basophils % (A) 0.5 %; Eosinophils # (A) 0.03 X 10*3/uL (0.04-0.35); Eosinophils % (A) 0.5 %; HCT 27.4 % (37.2-46.3); HGB 8.1 g/dL (12.0-15.0); Lymphocytes # (A) 0.58 X 10*3/uL (0.90-5.00); Lymphocytes % (A) 9.6 %; MCHC 29.6 g/dL (32.0-37.0); MCV 94.8 fL (80.0-97.0); Mean Platelet Volume 10.2 fL (9.5-12.2); Monocytes # (A) 0.53 X 10*3/uL (0.20-1.00); Monocytes % (A) 8.7 %; Neutrophils # (A) 4.88 X 10*3/uL (1.80-7.70); Neutrophils % (A) 80.4 %; Platelet Count 277 X 10*3/uL (140-440); RBC 2.89 X 10*6/uL (4.10-5.20); RDW 14.6 % (11.5-14.5); WBC 6.07 X 10*3/uL (4.50-10.00)
--- NOTE | 2021-01-03 10:36 | P.PN ---
Subjective Patient was seen and evaluated by me this morning. She was seated up in the chair. She told me that she did well with physical therapy. No acute events overnight. Objective - Vital Signs Vital signs: Vital Signs Temp 99.2 F 01/03/21 08:00 Pulse 79 01/03/21 08:00 Resp 18 01/03/21 08:00 BP 138/66 01/03/21 08:00 Pulse Ox 95 01/03/21 08:00 Intake & Output 01/02/21 01/03/21 01/03/21 18:59 06:59 18:59 Output Total 750 Balance -750 Output: Urine 750 Other: Voiding Method Indwelling Catheter # Voids 3 1 - Exam General: The patient is awake and alert, in no distress Eye: there is normal conjunctiva bilaterally. Neck: The neck is supple, there is no JVD. Cardiovascular: Normal S1-S2, no S3-S4, no murmurs. Respiratory: Lungs clear to auscultation bilaterally Gastrointestinal: Abdomen is soft, nontender Musculoskeletal: There is no pedal edema. Neurological:. Speech is normal. Skin: Skin is warm and dry - Labs CBC & Chem 7: 01/03/21 06:08 12/31/20 19:35 Labs: Abnormal Lab Results - Last 24 Hours (Table) 01/02/21 01/02/21 01/03/21 Range/Units 11:25 16:19 06:08 RBC 2.89 L (4.10-5.20) X 10*6/uL Hgb 8.1 L (12.0-15.0) g/dL Hct 27.4 L (37.2-46.3) % MCHC 29.6 L (32.0-37.0) g/dL RDW 14.6 H (11.5-14.5) % Absolute Nucleated RBC 0.03 H (0.00-0.00) X 10*3/uL Lymphocytes # 0.58 L (0.90-5.00) X 10*3/uL Eosinophils # 0.03 L (0.04-0.35) X 10*3/uL NRBC/100 WBC Diff 0.5 H (0.0-0.0) /100 WBCS POC Glucose (mg/dL) 140 H 189 H (75-99) mg/dL 01/03/21 Range/Units 06:50 RBC (4.10-5.20) X 10*6/uL Hgb (12.0-15.0) g/dL Hct (37.2-46.3) % MCHC (32.0-37.0) g/dL RDW (11.5-14.5) % Absolute Nucleated RBC (0.00-0.00) X 10*3/uL Lymphocytes # (0.90-5.00) X 10*3/uL Eosinophils # (0.04-0.35) X 10*3/uL NRBC/100 WBC Diff (0.0-0.0) /100 WBCS POC Glucose (mg/dL) 231 H (75-99) mg/dL Assessment and Plan Assessment: 70-year-old female with past medical history noted below that presented to the emergency room after sustaining a mechanical fall at home. In the ED she was evaluated and was found to have right femur intertrochanteric fracture she is admitted to orthopedic surgery with medicine consult. Acute right femoral intertrochanteric fracture Status post IM screw fixation orthopedic surgery Pain management and DVT prophylaxis per orthopedic current on aspirin twice daily Postoperative blood loss anemia We'll continue to monitor closely Diabetes mellitus with A1c of 7 Continue with insulin sliding scale Patient is full code Discharge planning, PT/OT, possible need for ECF for rehab
--- NOTE | 2021-01-03 11:29 | P.PN ---
Subjective Progress Note Date: 01/03/21 This patient is a 70-year-old female who is status-post operative fixation of right intertrochanteric hip fracture with short intramedullary hip screw on 01/01/[address] Vee. Today's post-operative day #2. The patient is seen and examined bedside. The patient states her pain is well-controlled at this time. We switched her pain medication to tylenol #3 yesterday, as [place] was making her itchy. She states she has not been itchy since starting the Tylenol #3. She is tolerating her diet well. She is urinating without issue. She has not had a bowel movement post- operatively, although she is passing gas and denies abdominal pain. She denies numbness or tingling of the right lower extremity. Vital signs stable. Objective - Vital Signs Vital signs: Vital Signs Temp 99.2 F 01/03/21 08:00 Pulse 79 01/03/21 08:00 Resp 18 01/03/21 08:00 BP 138/66 01/03/21 08:00 Pulse Ox 95 01/03/21 08:00 Intake & Output 01/02/21 01/03/21 01/03/21 18:59 06:59 18:59 Output Total 750 Balance -750 Output: Urine 750 Other: Voiding Method Indwelling Catheter # Voids 3 1 - Exam On examination, the patient is sitting up in bed in no apparent distress. She is alert and oriented 3. On inspection of the right hip, there are 3 clean, dry, intact surgical dressings in place. No bleeding or drainage through the dressing. Mild swelling of the thigh, thigh is soft and compressible. Patient is has good strength and range of motion of the right ankle. Motor and sensory function is intact of the right lower extremity. Dorsalis pedis pulse +2, right lower extremity is warm and well-perfused. Compression cuffs in place bilaterally. Calves are soft and nontender to palpation bilaterally. - Labs CBC & Chem 7: 01/03/21 06:08 12/31/20 19:35 Labs: Abnormal Lab Results - Last 24 Hours (Table) 01/02/21 01/02/21 01/03/21 Range/Units 11:25 16:19 06:08 RBC 2.89 L (4.10-5.20) X 10*6/uL Hgb 8.1 L (12.0-15.0) g/dL Hct 27.4 L (37.2-46.3) % MCHC 29.6 L (32.0-37.0) g/dL RDW 14.6 H (11.5-14.5) % Absolute Nucleated RBC 0.03 H (0.00-0.00) X 10*3/uL Lymphocytes # 0.58 L (0.90-5.00) X 10*3/uL Eosinophils # 0.03 L (0.04-0.35) X 10*3/uL NRBC/100 WBC Diff 0.5 H (0.0-0.0) /100 WBCS POC Glucose (mg/dL) 140 H 189 H (75-99) mg/dL 01/03/21 Range/Units 06:50 RBC (4.10-5.20) X 10*6/uL Hgb (12.0-15.0) g/dL Hct (37.2-46.3) % MCHC (32.0-37.0) g/dL RDW (11.5-14.5) % Absolute Nucleated RBC (0.00-0.00) X 10*3/uL Lymphocytes # (0.90-5.00) X 10*3/uL Eosinophils # (0.04-0.35) X 10*3/uL NRBC/100 WBC Diff (0.0-0.0) /100 WBCS POC Glucose (mg/dL) 231 H (75-99) mg/dL Assessment and Plan Assessment: Status-post operative fixation of right intertrochanteric hip fracture with short intramedullary hip screw on 01/01/21. Post-operative day #2. Plan: - Weight-bearing as tolerated on operative extremity. Up with assistance, up with a walker. - Physical therapy for gait and balance training. - 2 doses of postoperative antibiotics complete. - Aspirin 81 mg daily for DVT prophylaxis. - Pain management as needed. - Internal medicine for maggie-operative medical management. - Case management consulted the for discharge planning. Anticipate discharge to rehab tomorrow, pending medical clearance.
[2021-01-03 12:20] LABS: Glucose,Whole Blood 173 mg/dL (75-99)
[2021-01-03 16:48] LABS: Glucose,Whole Blood 208 mg/dL (75-99)
[2021-01-03 20:19] LABS: Glucose,Whole Blood 236 mg/dL (75-99)
[2021-01-03] MEDS: MORPHINE SULFATE 4 MG/ML SYRINGE IV PRN (22:06)
[2021-01-03] MEDS: SENNOSIDES-DOCUSATE SODIUM 1 EACH TAB PO SCH (22:06)
[2021-01-04] MEDS: Acetaminophen-Codeine 300-30mg TAB PO PRN ×4 (05:54→21:23)
[2021-01-04] MEDS: LEVOTHYROXINE 125 MCG TAB PO SCH (05:54)
[2021-01-04 07:12] LABS: Glucose,Whole Blood 179 mg/dL (75-99)
[2021-01-04] MEDS: INSULIN ASPART (NovoLOG) 100 UNIT/ML VIAL SQ SCH ×3 (07:17→16:55)
[2021-01-04] MEDS: ASPIRIN 81 MG PO SCH ×2 (07:17→21:22)
[2021-01-04 08:53] VITALS: RESP 16
[2021-01-04 09:14] LABS: African American GFR (CKD) >90 (>60 ml/min/1.73 sqM); Anion Gap 5 mmol/L; Blood Urea Nitrogen 11 mg/dL (7-17); Calcium 8.8 mg/dL (8.4-10.2); Carbon Dioxide 29 mmol/L (22-30); Chloride 105 mmol/L (98-107); Glucose 261 mg/dL (74-99); Non-African American GFR(CKD) >90 (>60 ml/min/1.73 sqM); Potassium 4.2 mmol/L (3.5-5.1); Sodium 139 mmol/L (137-145)
[2021-01-04 09:15] LABS: HCT 28.4 % (34.0-46.0); HGB 9.2 gm/dL (11.4-16.0); MCH 29.1 pg (25.0-35.0); MCHC 32.4 g/dL (31.0-37.0); Mean Platelet Volume 7.4; Platelet Count 406 k/uL (150-450); RBC 3.15 m/uL (3.80-5.40); RDW 14.3 % (11.5-15.5); WBC 6.7 k/uL (3.8-10.6)
--- NOTE | 2021-01-04 10:16 | P.PN ---
<Shivam Deshpande - Last Filed: 01/04/21 16:01> Subjective Progress Note Date: 01/04/21 Hospital course: Patient is a 70-year-old female with a past medical history of diabetes mellitus. She presented to the hospital on 12/31/20 with a chief complaint of fall resulting in right hip injury. Patient was found to have a right femur intertrochanteric fracture resulting in admission to orthopedic surgery team with Dr. Cancino and we have been consulted for continued medical management throughout patient's hospitalization. Physical exam: Patient seen and fully evaluated at bedside this morning. Patient sitting up in chair at this time. Patient reports she has been ambulatory in room and walking with walker with physical therapy. Patient reports currently pain is managed. She states currently pain 2-3 out of 10 at this time. Patient denies having any headache, lightheadedness, dizziness, chest pain, palpitations, or experiencing any numbness/tingling/weakness in her extremities. Patient denies having any postoperative nausea or vomiting and reports that she has been urinating without any difficulties. Vital signs reviewed and stable. General: Nontoxic, no distress and appears stated age. Derm: Skin warm and dry, normal coloration for ethnicity. Head: Atraumatic, normocephalic and symmetric. Eyes: EOMs intact, no lid lag, and anicteric sclera Mouth: no lip lesions, mucus membranes moist Cardiovascular: regular rate and rhythm with normal S1S2, no murmur, positive posterior tibial pulses bilaterally, and cap refill < 2 seconds. Lungs: Respirations even, regular, and unlabored on room air. Lungs CTA bilaterally, no rhonchi, no rales, no wheezing, and no accessory muscle usage. Abdominal: soft, nontender to palpation, no guarding, no appreciable organomegaly Ext: ROM intact. No gross muscle atrophy, no edema, no contractures Neuro: Speech clear, face symmetrical and CN II-XII grossly intact with no noted focal neuro deficits Psych: Alert and oriented to person, place, time, and situation. Appropriate and pleasant affect. Assessment and Plan of Care: Postoperative blood loss anemia is an expected outcome of the surgical procedure, improving -Morning hemoglobin resulting in 9.2. Status post intramedullary screw fixation of right intertrochanteric fracture Pain management, DVT prophylaxis, weightbearing, PT/OT per primary admitting orthopedic surgery team. Current DVT prophylaxis with aspirin twice a day. Diabetes mellitus type 2 with A1c of 7 Glycemic protocol with NovoLog sliding scale. Thank you for allowing us to participate in the care of this pleasant patient, patient is medically stable for discharge pending clearance of her primary adm itting orthopedic surgery team. Do not hesitate to contact us with questions. Someone can be reached from the [facility] hospitalist group all hours of the day at [phone] or via perfect serve. Objective - Vital Signs Vital signs: Vital Signs Temp 98.2 F 01/04/21 08:00 Pulse 74 01/04/21 08:00 Resp 16 01/04/21 08:00 BP 120/49 01/04/21 08:00 Pulse Ox 96 01/04/21 08:00 Intake & Output 01/03/21 01/04/21 01/04/21 18:59 06:59 18:59 Other: # Voids 3 2 - Labs CBC & Chem 7: 01/04/21 08:34 01/04/21 08:34 Labs: Abnormal Lab Results - Last 24 Hours (Table) 01/03/21 01/03/21 01/03/21 Range/Units 12:11 16:46 20:17 RBC (3.80-5.40) m/uL Hgb (11.4-16.0) gm/dL Hct (34.0-46.0) % Glucose (74-99) mg/dL POC Glucose (mg/dL) 173 H 208 H 236 H (75-99) mg/dL 01/04/21 01/04/21 01/04/21 Range/Units 07:11 08:34 08:34 RBC 3.15 L (3.80-5.40) m/uL Hgb 9.2 L (11.4-16.0) gm/dL Hct 28.4 L (34.0-46.0) % Glucose 261 H (74-99) mg/dL POC Glucose (mg/dL) 179 H (75-99) mg/dL <Maria Meier - Last Filed: 01/04/21 18:43> Subjective I reviewed the documentation as provided by the MARIA ISABEL above, who is the original author of this note. I agree with the documented assessment and plan, with the following changes: None Objective - Vital Signs Vital signs: Vital Signs Temp 98.2 F 01/04/21 14:00 Pulse 70 01/04/21 14:00 Resp 16 01/04/21 14:00 BP 115/57 01/04/21 14:00 Pulse Ox 98 01/04/21 14:00 Intake & Output 01/03/21 01/04/21 01/04/21 18:59 06:59 18:59 Other: # Voids 3 2 - Labs CBC & Chem 7: 01/04/21 08:34 01/04/21 08:34 Labs: Abnormal Lab Results - Last 24 Hours (Table) 01/03/21 01/04/21 01/04/21 Range/Units 20:17 07:11 08:34 RBC 3.15 L (3.80-5.40) m/uL Hgb 9.2 L (11.4-16.0) gm/dL Hct 28.4 L (34.0-46.0) % Glucose (74-99) mg/dL POC Glucose (mg/dL) 236 H 179 H (75-99) mg/dL 01/04/21 01/04/21 01/04/21 Range/Units 08:34 11:31 16:42 RBC (3.80-5.40) m/uL Hgb (11.4-16.0) gm/dL Hct (34.0-46.0) % Glucose 261 H (74-99) mg/dL POC Glucose (mg/dL) 185 H 167 H (75-99) mg/dL
[2021-01-04 11:32] LABS: Glucose,Whole Blood 185 mg/dL (75-99)
--- NOTE | 2021-01-04 11:44 | P.DS ---
Providers Date of admission: 12/31/20 18:36 Expected date of discharge: 01/04/21 Attending physician: Garo Vee Consults: 12/31/20 18:36 Consult Physician Routine Consulting Provider: Maria Meier Consult Reason/Comments: medical clearance Do you want consulting provider notified?: Yes Primary care physician: [facility] Course: This is a 70 year-old female who is admitted to [facility] on 12/31/20 after a ground-level fall and sustaining injury to the right hip. X-rays in the emergency department revealed an intertrochanteric fracture of the right hip. She is admitted to our service for surgical intervention and care. Patient was taken to surgery for operative fixation of her right hip fracture with a short intramedullary hip screw on 01/01/[address] Vee. The procedure was performed without complication or sequelae. The patient is doing fairly well post-operatively. Vital signs and labs are stable on postop erative day #3. Patient was examined bedside today. She states her pain is well-controlled on oral medication. She was up ambulating around her room yesterday. Patient is urinating without issue, she has not yet had a bowel movement. She denies abdominal pain and she is passing gas. Patient is tolerating her diet well. Patient denies chest pain, shortness of breath, nausea, vomiting, fevers, chi lls. Patient feels ready to transfer to rehab today. On examination, patient is alert and orientated x3. On inspection of the right hip, there are 3 healing incisions with no active drainage. No surrounding erythema, warmth. No signs of infection. There is mild swelling of the thigh. The thigh is soft and compressible. Patient has good strength and range of motion of the right ankle. Motor and sensory function is intact of the right lower extremity. Dorsalis pedis pulse +2. Right lower extremities warm and well perfused with brisk capillary refill distally. Calf is soft and nontender to palpation. No evidence of DVT. Patient is discharged to rehab in good condition, pending medical clearance. Patient will follow-up with Dr. Vee in the office in 2 weeks. Please see med rec for accurate list of discharge medication. Patient Condition at Discharge: Fair Plan - Discharge Summary Discharge Rx Participant: Yes New Discharge Prescriptions: New Acetaminophen-Codeine 300-30mg [Tylenol w/codeine #3] 1 tab PO Q4-6H PRN 7 Days #30 tablet PRN Reason: Pain Aspirin 81 mg PO BID 30 Days #60 tab Continue Turmeric Root Extract [Turmeric] 500 mg PO DAILY L.acidoph,Paracasei, B.lactis [Probiotic] 1 cap PO BID Cholecalciferol [Vitamin D3 (25 Mcg = 1000 Iu)] 25 mcg PO Q48H Citalopram Hydrobromide [CeleXA] 10 mg PO DAILY metFORMIN HCL [Glucophage] 1,000 mg PO BID estradioL [estradioL (Once Weekly) 0.05 mg Patch] 1 patch TRANSDERM Q7D buPROPion HCL [Wellbutrin XL] 150 mg PO DAILY Mv-Min/Folic/Vit K/Lut/Pxmt118 [Alive Women's 50 Plus Tablet] 1 tab PO DAILY Hernán/D3/Mag11/Zinc/Neonatal Social Worker/Leonard/Bor [Caltrate 600+D Plus Tablet] 1 tab PO BID sitaGLIPtin [Januvia] 100 mg PO DAILY Omeprazole 20 mg PO Q48H Levothyroxine Sodium [Synthroid] 125 mcg PO DAILY Fenofibrate [Lofibra] 160 mg PO DAILY Discontinued Aspirin EC [Ecotrin Low Dose] 81 mg PO DAILY Discharge Medication List Hernán/D3/Mag11/Zinc/Neonatal Social Worker/Leonard/Bor [Caltrate 600+D Plus Tablet] 1 tab PO BID 1 [History] Cholecalciferol [Vitamin D3 (25 Mcg = 1000 Iu)] 25 mcg PO Q48H 12/31/20 [History] Citalopram Hydrobromide [CeleXA] 10 mg PO DAILY 12/31/20 [History] Fenofibrate [Lofibra] 160 mg PO DAILY 12/31/20 [History] L.acidoph,Paracasei, B.lactis [Probiotic] 1 cap PO BID 12/31/20 [History] Levothyroxine Sodium [Synthroid] 125 mcg PO DAILY 12/31/20 [History] Mv-Min/Folic/Vit K/Lut/Somy229 [Alive Women's 50 Plus Tablet] 1 tab PO DAILY 12/31/20 [History] Omeprazole 20 mg PO Q48H 12/31/20 [History] Turmeric Root Extract [Turmeric] 500 mg PO DAILY 12/31/20 [History] buPROPion HCL [Wellbutrin XL] 150 mg PO DAILY 12/31/20 [History] estradioL [estradioL (Once Weekly) 0.05 mg Patch] 1 patch TRANSDERM Q7D 12/31/20 [History] metFORMIN HCL [Glucophage] 1,000 mg PO BID 12/31/20 [History] sitaGLIPtin [Januvia] 100 mg PO DAILY 12/31/20 [History] Acetaminophen-Codeine 300-30mg [Tylenol w/codeine #3] 1 tab PO Q4-6H PRN 7 Days #30 tablet 01/04/21 [Rx] Aspirin 81 mg PO BID 30 Days #60 tab 01/04/21 [Rx] Follow up Appointment(s)/Referral(s): Omid Christian MD [Primary Care Provider] - 1-2 days Garo Vee MD [Medical Doctor] - 2 Weeks Activity/Diet/Wound Care/Special Instructions: Weight-bear as tolerated on the operative leg with a walker. Pain management as needed. Aspirin for DVT prophylaxis. Daily dressing changes with adaptic, 4x4s, tegaderm. Follow-up in the office in [address] Vee. Call the office with any questions or concerns, Discharge Disposition: TRANSFER TO SNF/ECF
--- NOTE | 2021-01-04 15:34 | CDI ---
Documentation Clarification Form Date: 01/04/2021 03:12:19 PM From: Oneida Johnson RN CCDS Admit Date: 12/31/2020 06:36:00 PM Patient Name: Dulce Maria Winkler Visit Number: [id number] Discharge Date: ATTENTION: The Clinical Documentation Specialists (CDI) and [facility] Coding Staff appreciate your assistance in clarifying documentation. Please respond to the clarification below the line at the bottom and electronically sign. The CDI & [facility] Coding staff will review the response and follow-up if needed. Please note: Queries are made part of the Legal Health Record. If you have any questions, please contact the author of this message via ITS. Dr. Maria Meier Post-operative blood loss anemia is documented 01/03, medicine progress note and patient had Operative fixation of the right intertrochanteric hip fracture with short intramedullary hip screw, 01/01. Additional clarification is requested regarding the relationship, if any, that exists between the diagnosis and the procedure. Patients Admitting Diagnosis: Right completely displaced intertrochanteric hip fracture. Post-Operative Diagnosis: Same Procedure performed: Operative fixation of the right intertrochanteric hip fracture with short intramedullary hip screw History/Risk Factors: 70-year-old female presents to the ED via EMS after she tripped and fell hitting her right side and was unable to get up. Medical history: DM. Medicine consult 12/31 Clinical Indicators: Labs: 12/31 Hgb 11.1, 01/01 Hgb 10.0, 01/03 Hgb 8.1, 01/04 Hgb 9.2 Procedure Note 01/01: Estimated fluid loss during procedure 200ml. Procedure Note 01/01: IV fluids 1,200ml Medication List. 12/31 01/02 0.9NS 130mls/hr. 01/01 01/02 LR 100mls/hr. Ortho progress note 01/03: No bleeding or drainage through the dressing. Treatment: 12/31 01/04 Monitored H&H. What relationship, if any, exists between the diagnosis of post-operative blood loss anemia and the procedure: [ ] Post-operative blood loss anemia is a complication of surgical procedure [ x] Post-operative blood loss anemia is an expected outcome of the surgical procedure [ ] Other please specify ____ [ ] Unable to determine (Template Last Revised: May 2020) MTDD
[2021-01-04 16:44] LABS: Glucose,Whole Blood 167 mg/dL (75-99)
[2021-01-04] MEDS ORDERED: polyethylene glycoL 3350 17 GM POWD.PACK PO STA (20:37)
[2021-01-04 20:54] LABS: Glucose,Whole Blood 215 mg/dL (75-99)
[2021-01-04] MEDS: SENNOSIDES-DOCUSATE SODIUM 1 EACH TAB PO SCH (21:22)
[2021-01-05] MEDS: Acetaminophen-Codeine 300-30mg TAB PO PRN ×4 (02:48→20:03)
[2021-01-05] MEDS: LEVOTHYROXINE 125 MCG TAB PO SCH (05:55)
[2021-01-05 06:52] LABS: Glucose,Whole Blood 185 mg/dL (75-99)
[2021-01-05] MEDS: ASPIRIN 81 MG PO SCH ×2 (06:56→20:03)
[2021-01-05] MEDS: INSULIN ASPART (NovoLOG) 100 UNIT/ML VIAL SQ SCH ×3 (06:56→16:51)
--- NOTE | 2021-01-05 10:04 | P.PN ---
<Shivam Deshpande - Last Filed: 01/05/21 11:21> Subjective Progress Note Date: 01/05/21 Hospital course: Patient is a 70-year-old female with a past medical history of diabetes [facility]. She presented to the hospital on 12/31/20 with a chief complaint of fall resulting in right hip injury. Patient was found to have a right femur intertrochanteric fracture resulting in admission to orthopedic surgery team with Dr. Cancino and we have been consulted for continued medical management throughout patient's hospitalization. Pt pending discharge to rehab facility, currently pending insurance authorization. Physical exam: Patient seen and fully evaluated at bedside this morning. Patient resting in bed at time of assessment. Patient slightly discouraged regarding delayed discharged to rehabilitation facility. Patient updated that we are awaiting insurance authorization. Patient reports she continues to ambulate in room with walker. States pain is currently controlled. She continues to deny having any headache, lightheadedness, dizziness, chest pain, palpitations, or experiencing any numbness/tingling/weakness in her extremities. Vital signs reviewed and stable. General: Nontoxic, no distress and appears stated age. Derm: Skin warm and dry, normal coloration for ethnicity. Head: Atraumatic, normocephalic and symmetric. Eyes: EOMs intact, no lid lag, and anicteric sclera Mouth: no lip lesions, mucus membranes moist Cardiovascular: regular rate and rhythm with normal S1S2, no murmur, positive posterior tibial pulses bilaterally, and cap refill < 2 seconds. Lungs: Respirations even, regular, and unlabored on room air. Lungs CTA bilaterally, no rhonchi, no rales, no wheezing, and no accessory muscle usage. Abdominal: soft, nontender to palpation, no guarding, no appreciable organomegaly Ext: ROM intact. No gross muscle atrophy, no edema, no contractures Neuro: Speech clear, face symmetrical and CN II-XII grossly intact with no noted focal neuro deficits Psych: Alert and oriented to person, place, time, and situation. Appropriate and pleasant affect. Assessment and Plan of Care: Postoperative blood loss anemia is an expected outcome of the surgical procedure, improved -Hemoglobin stable at 9.2. Status post intramedullary screw fixation of right intertrochanteric fracture Pain management, DVT prophylaxis, weightbearing, PT/OT per primary admitting orthopedic surgery team. Current DVT prophylaxis with aspirin twice a day. Diabetes mellitus type 2 with A1c of 7 Glycemic protocol with NovoLog sliding scale. Thank you for allowing us to participate in the care of this pleasant patient, patient is medically stable for discharge pending clearance of her primary admitting orthopedic surgery team. Do not hesitate to contact us with questions. Someone can be reached from the [facility] hospitalist group all hours of the day at [phone] or via perfect serve. Objective - Vital Signs Vital signs: Vital Signs Temp 98.9 F 01/05/21 07:28 Pulse 68 01/05/21 07:28 Resp 16 01/05/21 07:28 BP 131/57 01/05/21 07:28 Pulse Ox 97 01/05/21 07:28 Intake & Output 01/04/21 01/05/21 01/05/21 18:59 06:59 18:59 Intake Total 236 Balance 236 Intake: Oral 236 Other: Voiding Method Indwelling Catheter # Voids 5 3 - Labs CBC & Chem 7: 01/04/21 08:34 01/04/21 08:34 Labs: Abnormal Lab Results - Last 24 Hours (Table) 01/04/21 01/04/21 01/04/21 Range/Units 11:31 16:42 20:53 POC Glucose (mg/dL) 185 H 167 H 215 H (75-99) mg/dL 01/05/21 Range/Units 06:51 POC Glucose (mg/dL) 185 H (75-99) mg/dL <Maria Meier - Last Filed: 01/05/21 18:33> Subjective I reviewed the documentation as provided by the MARIA ISABEL above, who is the original author of this note. I agree with the documented assessment and plan, with the following changes: None Objective - Vital Signs Vital signs: Vital Signs Temp 98.2 F 01/05/21 14:00 Pulse 70 01/05/21 14:00 Resp 16 01/05/21 14:00 BP 148/66 01/05/21 14:00 Pulse Ox 98 01/05/21 14:00 Intake & Output 01/04/21 01/05/21 01/05/21 18:59 06:59 18:59 Intake Total 708 Balance 708 Intake: Oral 708 Other: Voiding Method Indwelling Catheter # Voids 5 3 1 - Labs CBC & Chem 7: 01/04/21 08:34 01/04/21 08:34 Labs: Abnormal Lab Results - Last 24 Hours (Table) 01/04/21 01/05/21 01/05/21 Range/Units 20:53 06:51 11:47 POC Glucose (mg/dL) 215 H 185 H 171 H (75-99) mg/dL 01/05/21 Range/Units 16:45 POC Glucose (mg/dL) 193 H (75-99) mg/dL
[2021-01-05 11:49] LABS: Glucose,Whole Blood 171 mg/dL (75-99)
[2021-01-05] MEDS: FENOFIBRATE 160 MG TAB PO SCH (14:03)
[2021-01-05] MEDS: CITALOPRAM HYDROBROMIDE 10 MG TAB PO SCH (14:04)
[2021-01-05] MEDS: buPROPion XL 150 MG TAB.ER.24H PO SCH (14:04)
--- NOTE | 2021-01-05 16:02 | P.PN ---
Subjective Progress Note Date: 01/05/21 This patient is a 70-year-old female who is status-post operative fixation of right intertrochanteric hip fracture with short intramedullary hip screw on 01/01/[address] Vee. Today's post-operative day #4. The patient is seen and examined bedside this morning. Patient is doing well and continuing to mobilize with a walker and physical therapy. She is tolerating her diet well. She has no new complaints this morning. She is currently waiting to discharge to rehab. Vital signs stable. Objective - Vital Signs Vital signs: Vital Signs Temp 98.2 F 01/05/21 14:00 Pulse 70 01/05/21 14:00 Resp 16 01/05/21 14:00 BP 148/66 01/05/21 14:00 Pulse Ox 98 01/05/21 14:00 Intake & Output 01/04/21 01/05/21 01/05/21 18:59 06:59 18:59 Intake Total 472 Balance 472 Intake: Oral 472 Other: Voiding Method Indwelling Catheter # Voids 5 3 - Exam On examination, the patient is sitting up in bed in no apparent distress. She is alert and oriented 3. On inspection of the right hip, there are 3 clean, dry, intact surgical dressings in place. No bleeding or drainage through the dressing. Mild swelling of the thigh, thigh is soft and compressible. Patient is has good strength and range of motion of the right ankle. Motor and sensory function is intact of the right lower extremity. Dorsalis pedis pulse +2, right lower extremity is warm and well-perfused. Calves are soft and nontender to palpation bilaterally. - Labs CBC & Chem 7: 01/04/21 08:34 01/04/21 08:34 Labs: Abnormal Lab Results - Last 24 Hours (Table) 01/04/21 01/04/21 01/05/21 Range/Units 16:42 20:53 06:51 POC Glucose (mg/dL) 167 H 215 H 185 H (75-99) mg/dL 01/05/21 Range/Units 11:47 POC Glucose (mg/dL) 171 H (75-99) mg/dL Assessment and Plan Assessment: Status-post operative fixation of right intertrochanteric hip fracture with short intramedullary hip screw on 01/01/21. Post-operative day #4. Plan: - Weight-bearing as tolerated on operative extremity. Up with assistance, up with a walker. - Physical therapy for gait and balance training. - Aspirin 81 mg daily for DVT prophylaxis. - Pain management as needed. - Internal medicine for maggie-operative medical management. - Case management consulted the for discharge planning. Auth was denied for rehab after [id number] interview this afternoon. Therefore, ee will plan for discharge home tomorrow with home health care. Patient is ok with this plan.
[2021-01-05 16:46] LABS: Glucose,Whole Blood 193 mg/dL (75-99)
[2021-01-05] MEDS: SENNOSIDES-DOCUSATE SODIUM 1 EACH TAB PO SCH (20:03)
[2021-01-05 21:44] LABS: Glucose,Whole Blood 199 mg/dL (75-99)
[2021-01-06] MEDS: Acetaminophen-Codeine 300-30mg TAB PO PRN ×3 (00:51→10:23)
[2021-01-06] MEDS: LEVOTHYROXINE 125 MCG TAB PO SCH (06:17)
[2021-01-06 06:55] LABS: Glucose,Whole Blood 173 mg/dL (75-99)
[2021-01-06] MEDS: INSULIN ASPART (NovoLOG) 100 UNIT/ML VIAL SQ SCH ×2 (07:18→12:06)
[2021-01-06] MEDS: CITALOPRAM HYDROBROMIDE 10 MG TAB PO SCH (07:18)
[2021-01-06] MEDS: ASPIRIN 81 MG PO SCH (07:18)
[2021-01-06] MEDS: buPROPion XL 150 MG TAB.ER.24H PO SCH (07:18)
[2021-01-06] MEDS: FENOFIBRATE 160 MG TAB PO SCH (07:18)
[2021-01-06 08:11] VITALS: BP 153/68; PULSE 64; TEMP 98.1
--- NOTE | 2021-01-06 09:39 | US ---
EXAMINATION TYPE: US venous doppler duplex LE RT DATE OF EXAM: 01/06/2021 9:04 AM COMPARISON: NONE CLINICAL HISTORY: pain. SIDE PERFORMED: Right TECHNIQUE: The lower extremity deep venous system is examined utilizing real time linear array sonog ольга with graded compression, doppler sonography and color-flow sonography. VESSELS IMAGED: Common Femoral Vein Deep Femoral Vein Greater Saphenous Vein * Femoral Vein Popliteal Vein Small Saphenous Vein * Proximal Calf Veins (* superficial vessels) Right Leg: Negative for DVT Technically difficult due to swelling. Grayscale, color doppler, spectral doppler imaging performed of the deep veins of the right lower ext remity. There is normal flow, compressibility, vascular waveforms. IMPRESSION: Suboptimal study without evidence of acute DVT in the right lower extremity.
[2021-01-06 11:36] LABS: Glucose,Whole Blood 175 mg/dL (75-99)
[2021-01-06 11:40] VITALS: BMI 29.5
--- NOTE | 2021-01-06 12:55 | P.PN ---
<Shivam Deshpande - Last Filed: 01/06/21 12:50> Subjective Progress Note Date: 01/06/21 Hospital course: Patient is a 70-year-old female with a past medical history of diabetes [facility] us. She presented to the hospital on 12/31/20 with a chief complaint of fall resulting in right hip injury. Patient was found to have a right femur intertrochanteric fracture resulting in admission to orthopedic surgery team with Dr. Cancino on 01/01/21 and we were consulted to follow along with patient for continued medical management throughout her hospitalization. Insurance authorization to go to rehab facility was denied. Pt being discharged home by primary orthopedic surgery team and going home with homecare. Pt is medically stable for discharge home at this time. Physical exam: Patient seen and fully evaluated at bedside this morning. Patient resting in bed at time of assessment. Patient reports feeling slightly discouraged over insurance denial to rehabilitation facility. Patient however states she does have family assistance and that her daughter lives less than 20 minutes away from her. She reports postoperative pain remains controlled with Tylenol threes she has been taking for pain management. Patient does report feeling a little sleepy after pain medication, otherwise denies having any complaints. Patient medically stable for discharge home is home care at this time. Vital signs reviewed and stable. General: Nontoxic, no distress and appears stated age. Derm: Skin warm and dry, normal coloration for ethnicity. Surgical dressings to right hip, clean, dry, and intact. Head: Atraumatic, normocephalic and symmetric. Eyes: EOMs intact, no lid lag, and anicteric sclera Mouth: no lip lesions, mucus membranes moist Cardiovascular: regular rate and rhythm with normal S1S2, no murmur, positive posterior tibial pulses bilaterally, and cap refill < 2 seconds. Lungs: Respirations even, regular, and unlabored on room air. Lungs CTA bilaterally, no rhonchi, no rales, no wheezing, and no accessory muscle usage. Abdominal: soft, nontender to palpation, no guarding, no appreciable organomegaly Ext: ROM intact. No gross muscle atrophy, no edema, no contractures Neuro: Speech clear, face symmetrical and CN II-XII grossly intact with no noted focal neuro deficits Psych: Alert and oriented to person, place, time, and situation. Appropriate and pleasant affect. Assessment and Plan of Care: Postoperative blood loss anemia is an expected outcome of the surgical procedure, improved -Hemoglobin stable at 9.2. Status post intramedullary screw fixation of right intertrochanteric fracture Pain management, DVT prophylaxis, weightbearing, PT/OT per primary admitting orthopedic surgery team. Current DVT prophylaxis with aspirin twice a day. Diabetes mellitus type 2 with A1c of 7 Glycemic protocol with NovoLog sliding scale. Thank you for allowing us to participate in the care of this pleasant patient, patient is medically stable for discharge pending clearance of her primary admitting orthopedic surgery team. Do not hesitate to contact us with questions. Someone can be reached from the [facility] hospitalist group all hours of the day at [phone] or via [employer]. Objective - Vital Signs Vital signs: Vital Signs Temp 98.1 F 01/06/21 08:00 Pulse 64 01/06/21 08:00 Resp 16 01/06/21 08:00 BP 153/68 01/06/21 08:00 Pulse Ox 95 01/06/21 08:00 Intake & Output 01/05/21 01/06/21 01/06/21 18:59 06:59 18:59 Intake Total 708 236 Balance 708 236 Intake: Oral 708 236 Other: Voiding Method Indwelling Catheter # Voids 1 # Bowel Movements 1 - Labs CBC & Chem 7: 01/04/21 08:34 01/04/21 08:34 Labs: Abnormal Lab Results - Last 24 Hours (Table) 01/05/21 01/05/21 01/05/21 Range/Units 11:47 16:45 21:41 POC Glucose (mg/dL) 171 H 193 H 199 H (75-99) mg/dL 01/06/21 Range/Units 06:54 POC Glucose (mg/dL) 173 H (75-99) mg/dL <Maria Meier - Last Filed: 01/06/21 18:47> Subjective nI reviewed the documentation as provided by the MARIA ISABEL above, who is the original author of this note. I agree with the documented assessment and plan, with the following changes: none] Objective - Vital Signs Vital signs: Vital Signs Temp 98.1 F 01/06/21 08:00 Pulse 64 01/06/21 08:00 Resp 16 01/06/21 08:00 BP 153/68 01/06/21 08:00 Pulse Ox 95 01/06/21 08:00 Intake & Output 01/05/21 01/06/21 01/06/21 18:59 06:59 18:59 Intake Total 708 236 Balance 708 236 Weight 78.018 kg Intake: Oral 708 236 Other: Voiding Method Indwelling Catheter # Voids 1 # Bowel Movements 1 - Labs CBC & Chem 7: 01/04/21 08:34 01/04/21 08:34 Labs: Abnormal Lab Results - Last 24 Hours (Table) 01/05/21 01/06/21 01/06/21 Range/Units 21:41 06:54 11:35 POC Glucose (mg/dL) 199 H 173 H 175 H (75-99) mg/dL
== END 2021-01-06 12:52 | disposition home health service (06) | DRG 481 ==
LOC: EC 15:43 → 4SSUR 18:36
PROVIDERS: ADMIT Orthopaedic Surgery; ATTEND Orthopaedic Surgery
PROC: 0QS636Z Reposition Right Upper Femur with Intramedullary Internal Fixation Device, Percutaneous Approach (ICD-10-PCS; principal; 2021-01-01 09:00)
DX: S72.141A Displaced intertrochanteric fracture of right femur, initial encounter for closed fracture (principal); D62 Acute posthemorrhagic anemia; W01.0XXA Fall on same level from slipping, tripping and stumbling without subsequent striking against object, initial encounter; Y92.009 Unspecified place in unspecified non-institutional (private) residence as the place of occurrence of the external cause; M21.70 Unequal limb length (acquired), unspecified site; E11.9 Type 2 diabetes mellitus without complications; F41.9 Anxiety disorder, unspecified; Z79.84 Long term (current) use of oral hypoglycemic drugs; Z79.82 Long term (current) use of aspirin; Z79.890 Hormone replacement therapy; Z79.899 Other long term (current) drug therapy; Z90.710 Acquired absence of both cervix and uterus; Z96.652 Presence of left artificial knee joint; Z88.5 Allergy status to narcotic agent; Z88.0 Allergy status to penicillin; Z88.2 Allergy status to sulfonamides; Z98.890 Other specified postprocedural states; Z90.49 Acquired absence of other specified parts of digestive tract; Z20.822 Contact with and (suspected) exposure to COVID-19
CPT/HCPCS: 71045; 73502; 80048; 82306; 85025; 85027; 85610; 85730; 87635; 93005; 96374; 96375; 99285

== ENCOUNTER → 2021-05-30 | Outpatient (CLI) | payer MEDICARE ==
--- NOTE | 2021-05-30 19:36 | CT ---
EXAMINATION TYPE: CT hip RT wo con DATE OF EXAM: 05/30/2021 COMPARISON: X-ray dated 01/01/2021 HISTORY: right hip pain following fall CT DLP: 574 mGycm Automated exposure control for dose reduction was used. TECHNIQUE: Multiplanar CT scan of the right hip joint without IV contrast sedation. 3-D reconstructio n images were performed on a separate workstation and reviewed. FINDINGS: Right proximal femoral fixation using an intramedullary nail and interlocking screws. No evidence of prosthesis break or displacement. The right femoral intertrochanteric fracture line is still identifi ed yet with good alignment. Small bone fragments/soft tissue calcifications are seen at the anterior aspect the right femoral nec k measuring up to 15 mm, likely inseparable from the right iliopsoas muscle/tendon. Calcific tendinit is cannot be excluded. No definite acute fracture line identified. Unremarkable right hip joint. Degenerative changes of the symphysis pubis and right sacroiliac joint. Minimal arterial atherosclerotic calcifications. IMPRESSION: Right proximal femoral fixation. No evidence of prosthesis break or displacement. No definite acute f racture line identified. Incidental findings as described above. Further bone scan or MRI assessment can be considered if clinically required.
== END | disposition home or self-care (01) ==
LOC: RADCTMAIN 15:28
PROVIDERS: ATTEND Orthopaedic Surgery
DX: Z48.89 Encounter for other specified surgical aftercare (principal); S72.141D Displaced intertrochanteric fracture of right femur, subsequent encounter for closed fracture with routine healing; M25.551 Pain in right hip; X58.XXXD Exposure to other specified factors, subsequent encounter

== ENCOUNTER → 2021-07-07 | Outpatient (CLI) | payer MEDICARE ==
--- NOTE | 2021-07-13 09:32 | MM ---
Reason for exam: screening (asymptomatic). Last mammogram was performed 1 year and 5 months ago. History: Patient is postmenopausal. Taking estrogen for 10 years beginning at age 60. Physical Findings: A clinical breast exam by your physician is recommended on an annual basis and results should be correlated with mammographic findings. MG 3D Screening Mammo W/Cad Bilateral CC, MLO, and XCCL view(s) were taken. Prior study comparison: February 05, 2020, bilateral MG 3d screening mammo w/cad. October 03, 2018, bilateral MG 3d screening mammo w/cad. July 23, 2017, mammogram, performed at [facility]. The breast tissue is heterogeneously dense. This may lower the sensitivity of mammography. No significant changes when compared with prior studies. ASSESSMENT: Benign, BI-RAD 2 RECOMMENDATION: Routine screening mammogram of both breasts in 1 year.
== END | disposition home or self-care (01) ==
LOC: RADMAMWWP 10:55
PROVIDERS: ATTEND Family Medicine
DX: Z12.31 Encounter for screening mammogram for malignant neoplasm of breast (principal)
CPT/HCPCS: 77063; 77067

== ENCOUNTER 2021-08-25 07:55 | Day surgery (SDC) | payer MEDICARE ==
[2021-08-25] MEDS ORDERED: ALPRAZolam 0.25 MG TAB PO PRN (08:17)
[2021-08-25 08:46] VITALS: TEMP 97.9
[2021-08-25 10:16] VITALS: BP 134/74; PULSE 61; RESP 18
[2021-08-25 17:01] LABS: Appearance,BF Clear
--- NOTE | 2021-08-27 14:46 | US ---
EXAMINATION TYPE: US guided aspiration major joint, right hip DATE OF EXAM: 08/25/2021 Comparison: CT 05/30/2021 and radiograph 01/01/2021 Clinical History: 71-year-old female M25.551, S72.141K. Right hip pain, follow-up internal fixation o f displaced right IT fracture with nonunion. Procedure: 1. Ultrasound of the right hip 2. Ultrasound guided right hip aspiration. Right hip scan, anterior approach showed the femoral head neck junction. There is some hypoechogenici ty overlying this region that could represent a small effusion versus granulation tissue/synovium. Ad ditional scanning was performed along the greater trochanter at the entry site of the intramedullary morgan. We were able to visualize the end of the morgan but no abnormal fluid around this region. Technique: The procedure, risks, and alternatives, were discussed with the patient, who requested kamaljit t we proceed. The consent form was signed, and teach-back occurred. The site/side of the procedure wa s marked with a line with participation by the patient. The accompanying paperwork was verified for c onsistency. A directed history and physical exam was performed prior to the procedure. Medication rec onciliation was performed by ancillary personnel. A critical pause was performed with assisting willy soriano just prior to the procedure and the patient's identity was confirmed using 2 identifiers. Imagin g guidance was utilized to select the precise skin entry point just prior to the procedure. The right hip was prepped and draped in the usual sterile fashion and local 1% lidocaine anesthesia w as instilled. Under ultrasound guidance, an 18 gauge spinal needle was introduced into the right hip joint. Ultrasound confirmed the position of the needle tip. Aspiration yielded only a couple drops of bloody fluid which was capped and sent for laboratory anayeli sis. Subsequent wash utilizing a syringe with 7 mL of sterile saline. 4 mL of fluid was injected into the hip joint and aspiration yielded a total of 5 mL clear fluid in the syringe. The needle was then removed. The patient tolerated the procedure well. There were no immediate complications. After the procedure, the patient's condition was unchanged. Es timated blood loss was minimal. The patient was instructed on routine postprocedure precautions, incl uding monitoring for signs of infection. IMPRESSION: Right hip joint aspiration. Dry tap. Only a couple drops of bloody fluid were returned. This was sent for laboratory analysis. Subsequent wash was also performed. We also scanned the lateral aspect of t he hip superior to the greater trochanter at the morgan entry site and no abnormal fluid was seen here.
== END 2021-08-25 10:05 | disposition home or self-care (01) ==
LOC: RADPROMAIN 07:55
PROVIDERS: ATTEND Orthopaedic Surgery
DX: M25.551 Pain in right hip (principal); S72.141K Displaced intertrochanteric fracture of right femur, subsequent encounter for closed fracture with nonunion
CPT/HCPCS: 20611; 85379; 85652; 86140; 87070; 87075; 87102; 87205; 89050

== ENCOUNTER → 2021-09-27 | Outpatient (CLI) | payer MEDICARE ==
[2021-09-27 15:26] LABS: INR 0.9 (<1.2); Prothrombin Time 10.2 sec (9.0-12.0)
[2021-09-27 16:05] LABS: Partial Thromboplastin Time 19.9 sec (22.0-30.0)
[2021-09-27 18:19] LABS: HCT 35.8 % (37.2-46.3); HGB 10.6 g/dL (12.0-15.0); MCH 26.8 pg (27.0-32.0); MCHC 29.6 g/dL (32.0-37.0); MCV 90.4 fL (80.0-97.0); Mean Platelet Volume 9.7 fL (9.5-12.2); NRBC Per 100 WBC 0 /100 WBCS (0.0-0.0); Platelet Count 350 X 10*3/uL (140-440); RBC 3.96 X 10*6/uL (4.10-5.20); RDW 14.4 % (11.5-14.5); WBC 5.27 X 10*3/uL (4.50-10.00)
[2021-09-27 18:55] LABS: Appearance,Urine Clear (Clear); Bilirubin,Urine Negative (Negative); Blood,Urine Negative (Negative); Color,Urine Dark Yellow (Yellow); Ketones,Urine 15 mg/dL (Negative); Nitrite,Urine Negative (Negative); Specific Gravity,Urine 1.035 (1.001-1.030)
[2021-09-27 19:18] LABS: Bacteria,Urine None Seen /HPF (None Seen)
[2021-09-27 19:36] LABS: ALT 32 U/L (8-44); AST 25 U/L (13-35); African American GFR (CKD) 100.4 (60.0-200.0); Albumin 4.2 g/dL (3.8-4.9); Alkaline Phosphatase 67 U/L (41-126); BUN/Creat Ratio 26.27 Ratio (12.00-20.00); Blood Urea Nitrogen 18.6 mg/dL (9.0-27.0); Calcium 9.3 mg/dL (8.7-10.3); Carbon Dioxide 20.3 mmol/L (20.0-27.5); Chloride 106 mmol/L (96-109); Globulin 2.1 g/dL (1.6-3.3); Glucose 88 mg/dL (70-110); Non-African American GFR(CKD) 86.6 (60.0-200.0); Potassium 4.6 mmol/L (3.5-5.5); Sodium 142 mmol/L (135-145); Total Bilirubin <0.15 mg/dL (0.30-1.20); Total Protein 6.3 g/dL (6.2-8.2)
== END | disposition home or self-care (01) ==
LOC: LABPAT 13:55
PROVIDERS: ATTEND Orthopaedic Surgery
DX: Z01.812 Encounter for preprocedural laboratory examination (principal); M16.11 Unilateral primary osteoarthritis, right hip; S72.011A Unspecified intracapsular fracture of right femur, initial encounter for closed fracture; X58.XXXA Exposure to other specified factors, initial encounter
CPT/HCPCS: 80053; 81001; 85027; 85610; 85730; 93005

== ENCOUNTER → 2021-09-29 | Outpatient (CLI) | payer MEDICARE | END | disposition home or self-care (01) | LOC: LABPAT 10:37 | PROVIDERS: ATTEND Orthopaedic Surgery | DX: Z01.812 Encounter for preprocedural laboratory examination (principal) | CPT/HCPCS: 87070 ==

== ENCOUNTER 2021-10-03 16:17 | Emergency (ER) | payer MEDICARE ==
[2021-10-03 18:49] VITALS: PULSE 72; TEMP 97.7
[2021-10-03 18:58] LABS: Basophils # (A) 0.1 k/uL (0-0.2); Basophils % (A) 1 %; Eosinophils # (A) 0.1 k/uL (0-0.7); Eosinophils % (A) 1 %; HCT 35.6 % (34.0-46.0); HGB 11.3 gm/dL (11.4-16.0); Hypochromasia Slight; Lymphocytes # (A) 1.3 k/uL (1.0-4.8); Lymphocytes % (A) 24 %; MCH 28.1 pg (25.0-35.0); MCHC 31.7 g/dL (31.0-37.0); MCV 88.4 fL (80.0-100.0); Mean Platelet Volume 7.2; Monocytes # (A) 0.4 k/uL (0-1.0); Monocytes % (A) 6 %; Neutrophils # (A) 3.6 k/uL (1.3-7.7); Neutrophils % (A) 66 %; Platelet Count 379 k/uL (150-450); RBC 4.02 m/uL (3.80-5.40); RDW 14.5 % (11.5-15.5); WBC 5.5 k/uL (3.8-10.6)
[2021-10-03 19:07] LABS: ALT 36 U/L (4-34); AST 35 U/L (14-36); African American GFR (CKD) >90 (>60 ml/min/1.73 sqM); Albumin 4.2 g/dL (3.5-5.0); Alkaline Phosphatase 68 U/L (38-126); Anion Gap 6 mmol/L; Blood Urea Nitrogen 20 mg/dL (7-17); Calcium 9.2 mg/dL (8.4-10.2); Carbon Dioxide 26 mmol/L (22-30); Chloride 108 mmol/L (98-107); Glucose 113 mg/dL (74-99); Magnesium 1.5 mg/dL (1.6-2.3); Non-African American GFR(CKD) 78 (>60 ml/min/1.73 sqM); Potassium 3.9 mmol/L (3.5-5.1); Sodium 140 mmol/L (137-145); Total Bilirubin 0.1 mg/dL (0.2-1.3); Total Protein 6.8 g/dL (6.3-8.2)
[2021-10-03] MEDS ORDERED: MAGNESIUM OXIDE 400 MG TAB PO STA (20:27)
--- NOTE | 2021-10-03 21:04 | ED ---
General Adult HPI - General Chief complaint: Nausea/Vomiting/Diarrhea Stated complaint: wants to be tested for c-diff Time Seen by Provider: 10/03/21 17:47 Source: patient Mode of arrival: ambulatory Limitations: no limitations - History of Present Illness Initial comments: 8-year-old female presents the emergency department with diarrhea. States that it has been on and off since May. States that she will have days where she will have up to 8 episodes of loose, watery stool. No black or bloody stool. No accompanied fevers. She did see her primary care physician earlier this year and was told to drink Pedialyte. States that the Pedialyte does help. She has had diarrhea over the past week and is concerned for C. diff as she does present with her daughter who was just treated for C. diff. She admits to mild abdominal discomfort. No changes in her urination. No other alleviating, precipitating or modifying factors - Related Data Home Medications Medication Instructions Recorded Confirmed Fenofibrate [Lofibra] 160 mg PO DAILY 12/31/20 09/28/21 Levothyroxine Sodium [Synthroid] 125 mcg PO DAILY 12/31/20 09/28/21 Mv-Min/Folic/Vit K/Lut/Gnpt645 1 tab PO DAILY 12/31/20 09/28/21 [Alive Women's 50 Plus Tablet] Omeprazole 20 mg PO DAILY PRN 12/31/20 09/28/21 Turmeric Root Extract [Turmeric] 500 mg PO DAILY 12/31/20 09/28/21 buPROPion HCL [Wellbutrin XL] 150 mg PO DAILY 12/31/20 09/28/21 estradioL [estradioL (Once Weekly) 1 patch TRANSDERM DIRECTED 12/31/20 09/28/21 0.05 mg Patch] metFORMIN HCL [Glucophage] 1,000 mg PO BID 12/31/20 09/28/21 sitaGLIPtin [Januvia] 100 mg PO DAILY 12/31/20 09/28/21 Acetaminophen [Tylenol Extra 1,000 mg PO BID 08/15/21 09/28/21 Strength] Ferrous Sulfate [Feosol] 325 mg PO DAILY 08/15/21 09/28/21 Magnesium 500 mg PO DAILY 08/15/21 09/28/21 Calcium Citrate/Vitamin D3 2 each PO DAILY 09/28/21 09/28/21 [Citracal + D Maximum Caplet] Cholecalciferol (Vitamin D3) 250 mcg PO DAILY 09/28/21 09/28/21 [Vitamin D3 (125 MCG = 5,000 IU)] Citalopram Hydrobromide 20 mg PO QAM 09/28/21 09/28/21 [Citalopram HBr] Previous Rx's Medication Instructions Recorded Aspirin 81 mg PO BID 30 Days #60 tab 01/04/21 Diphenox-Atrop 2.5-0.025 mg 1 - 2 tab PO QID PRN #24 tab 10/03/21 [Lomotil] Magnesium Oxide [Mag-Ox] 400 mg PO DAILY #30 tablet 10/03/21 Allergies Allergy/AdvReac Type Severity Reaction Status Date / Time hydrocodone [From Vicodin] Allergy Confusion Verified 10/03/21 17:14 Penicillins Allergy Rash/Hives Verified 10/03/21 17:14 Sulfa (Sulfonamide Allergy Rash/Hives Verified 10/03/21 17:14 Antibiotics) dust,old Allergy Unknown Uncoded 10/03/21 17:14 Review of Systems ROS Statement: Those systems with pertinent positive or pertinent negative responses have been documented in the HPI. ROS Other: All systems not noted in ROS Statement are negative. Past Medical History Past Medical History: Diabetes Mellitus, Thyroid Disorder History of Any Multi-Drug Resistant Organisms: None Reported Past Surgical History: Cholecystectomy, Hysterectomy, Orthopedic Surgery Additional Past Surgical History / Comment(s): lt knee, right femur fracture Dec 2020, Past Anesthesia/Blood Transfusion Reactions: No Reported Reaction, Previous Problems w/ Anesthesia Additional Past Anesthesia/Blood Transfusion Reaction / Comment(s): sensitive to anesthetic Past Psychological History: Anxiety Smoking Status: Never smoker - Past Family History Family Family Medical History: No Reported History General Exam Limitations: no limitations General appearance: alert, in no apparent distress Head exam: Present: atraumatic, normocephalic, normal inspection Eye exam: Present: normal appearance, PERRL, EOMI. Absent: scleral icterus, conjunctival injection, periorbital swelling ENT exam: Present: normal exam, mucous membranes moist Neck exam: Present: normal inspection. Absent: tenderness, meningismus, lymphadenopathy Respiratory exam: Present: normal lung sounds bilaterally. Absent: respiratory distress, wheezes, rales, rhonchi, stridor Cardiovascular Exam: Present: regular rate, normal rhythm, normal heart sounds. Absent: systolic murmur, diastolic murmur, rubs, gallop, clicks GI/Abdominal exam: Present: soft, normal bowel sounds. Absent: distended, tenderness, guarding, rebound, rigid Extremities exam: Present: normal inspection, full ROM, normal capillary refill. Absent: tenderness, pedal edema, joint swelling, calf tenderness Back exam: Present: normal inspection Neurological exam: Present: alert, oriented X3, CN II-XII intact Psychiatric exam: Present: normal affect, normal mood Skin exam: Present: warm, dry, intact, normal color. Absent: rash Course Vital Signs 10/03/21 10/03/21 18:48 21:10 Temperature 97.7 F 97.7 F Pulse Rate 72 72 Respiratory 16 18 Rate Blood Pressure 146/85 171/69 O2 Sat by Pulse 99 99 Oximetry Medical Decision Making - Medical Decision Making Upon arrival patient is placed into room 32. Thorough history and physical exam was performed. Patient is able to give a stool sample. I did complete laboratory studies. Magnesium is low at 1.5. This is replaced. C. diff is negative. Occult is negative. I did discuss results with the patient. Patient will be discharged home on magnesium replacement. Given follow-up information for Dr. Melo's office. I will also give the patient a prescription for Lomotil. She is to return for any new or worsening symptoms. Patient agreed and she was discharged - Lab Data Result diagrams: 10/03/21 18:49 10/03/21 18:49 Lab Results 10/03/21 10/03/21 10/03/21 Range/Units 18:49 18:49 18:49 WBC 5.5 (3.8-10.6) k/uL RBC 4.02 (3.80-5.40) m/uL Hgb 11.3 L (11.4-16.0) gm/dL Hct 35.6 (34.0-46.0) % MCV 88.4 (80.0-100.0) fL MCH 28.1 (25.0-35.0) pg MCHC 31.7 (31.0-37.0) g/dL RDW 14.5 (11.5-15.5) % Plt Count 379 (150-450) k/uL MPV 7.2 Neutrophils % 66 % Lymphocytes % 24 % Monocytes % 6 % Eosinophils % 1 % Basophils % 1 % Neutrophils # 3.6 (1.3-7.7) k/uL Lymphocytes # 1.3 (1.0-4.8) k/uL Monocytes # 0.4 (0-1.0) k/uL Eosinophils # 0.1 (0-0.7) k/uL Basophils # 0.1 (0-0.2) k/uL Hypochromasia Slight Sodium 140 (137-145) mmol/L Potassium 3.9 (3.5-5.1) mmol/L Chloride 108 H (98-107) mmol/L Carbon Dioxide 26 (22-30) mmol/L Anion Gap 6 mmol/L BUN 20 H (7-17) mg/dL Creatinine 0.77 (0.52-1.04) mg/dL Est GFR (CKD-EPI)AfAm >90 (>60 ml/min/1.73 sqM) Est GFR (CKD-EPI)NonAf 78 (>60 ml/min/1.73 sqM) Glucose 113 H (74-99) mg/dL Calcium 9.2 (8.4-10.2) mg/dL Magnesium 1.5 L (1.6-2.3) mg/dL Total Bilirubin 0.1 L (0.2-1.3) mg/dL AST 35 (14-36) U/L ALT 36 H (4-34) U/L Alkaline Phosphatase 68 (38-126) U/L Total Protein 6.8 (6.3-8.2) g/dL Albumin 4.2 (3.5-5.0) g/dL Stool Occult Blood Negative (Negative) C. difficile (EIA) Intrp (Negative) 10/03/21 Range/Units 18:49 WBC (3.8-10.6) k/uL RBC (3.80-5.40) m/uL Hgb (11.4-16.0) gm/dL Hct (34.0-46.0) % MCV (80.0-100.0) fL MCH (25.0-35.0) pg MCHC (31.0-37.0) g/dL RDW (11.5-15.5) % Plt Count (150-450) k/uL MPV Neutrophils % % Lymphocytes % % Monocytes % % Eosinophils % % Basophils % % Neutrophils # (1.3-7.7) k/uL Lymphocytes # (1.0-4.8) k/uL Monocytes # (0-1.0) k/uL Eosinophils # (0-0.7) k/uL Basophils # (0-0.2) k/uL Hypochromasia Sodium (137-145) mmol/L Potassium (3.5-5.1) mmol/L Chloride (98-107) mmol/L Carbon Dioxide (22-30) mmol/L Anion Gap mmol/L BUN (7-17) mg/dL Creatinine (0.52-1.04) mg/dL Est GFR (CKD-EPI)AfAm (>60 ml/min/1.73 sqM) Est GFR (CKD-EPI)NonAf (>60 ml/min/1.73 sqM) Glucose (74-99) mg/dL Calcium (8.4-10.2) mg/dL Magnesium (1.6-2.3) mg/dL Total Bilirubin (0.2-1.3) mg/dL AST (14-36) U/L ALT (4-34) U/L Alkaline Phosphatase (38-126) U/L Total Protein (6.3-8.2) g/dL Albumin (3.5-5.0) g/dL Stool Occult Blood (Negative) C. difficile (EIA) Intrp Negative (Negative) Disposition Clinical Impression: Diarrhea, Low magnesium level Disposition: HOME SELF-CARE Condition: Stable Instructions (If sedation given, give patient instructions): Acute Diarrhea (ED) Additional Instructions: Please take the magnesium supplementation daily and follow up with your primary care doctor in 1-2 weeks for reevaluation of your magnesium level. I also recommend that you follow-up with GI for your chronic diarrhea Prescriptions: Diphenox-Atrop 2.5-0.025 mg [Lomotil] 1 - 2 tab PO QID PRN #24 tab PRN Reason: Diarrhea Magnesium Oxide [Mag-Ox] 400 mg PO DAILY #30 tablet Is patient prescribed a controlled substance at d/c from ED?: No Referrals: Omid Christian MD [Primary Care Provider] - 1-2 days Sakina Hogan MD [STAFF PHYSICIAN] - 1-2 days Time of Disposition: 21:04
[2021-10-03 21:13] VITALS: BP 171/69; RESP 18
== END 2021-10-03 21:16 | disposition home or self-care (01) ==
LOC: EC 16:17
DX: R19.7 Diarrhea, unspecified (principal); E83.42 Hypomagnesemia; E11.9 Type 2 diabetes mellitus without complications; E07.9 Disorder of thyroid, unspecified; F41.9 Anxiety disorder, unspecified
CPT/HCPCS: 36415; 80053; 82272; 83735; 85025; 87324; 99284

== ENCOUNTER → 2021-11-09 | Outpatient (CLI) | payer MEDICARE ==
[2021-11-09 12:23] LABS: Partial Thromboplastin Time 23.5 sec (22.0-30.0); Prothrombin Time 10.7 sec (9.0-12.0)
[2021-11-09 19:01] LABS: Appearance,Urine Clear (Clear); Bilirubin,Urine Negative (Negative); Blood,Urine Negative (Negative); Color,Urine Yellow (Yellow); Ketones,Urine Trace mg/dL (Negative); Nitrite,Urine Negative (Negative); PH, Urine 5.5 (5.0-8.0); Specific Gravity,Urine 1.027 (1.001-1.030); Urobilinogen,Urine 0.2 (0.2,1.0)
[2021-11-09 19:08] LABS: African American GFR (CKD) 81.7 (60.0-200.0); Albumin 4.5 g/dL (3.8-4.9); Albumin/Globulin Ratio 1.85 (1.60-3.17); Anion Gap 11.2 mmol/L (10.00-18.00); BUN/Creat Ratio 18.83 Ratio (12.00-20.00); Blood Urea Nitrogen 15.8 mg/dL (9.0-27.0); Calcium 9.3 mg/dL (8.7-10.3); Carbon Dioxide 22.4 mmol/L (20.0-27.5); Globulin 2.4 g/dL (1.6-3.3); HCT 37.9 % (37.2-46.3); HGB 11.6 g/dL (12.0-15.0); MCH 27.4 pg (27.0-32.0); MCHC 30.6 g/dL (32.0-37.0); MCV 89.4 fL (80.0-97.0); Mean Platelet Volume 9.3 fL (9.5-12.2); NRBC Per 100 WBC 0 /100 WBCS (0.0-0.0); Non-African American GFR(CKD) 70.5 (60.0-200.0); Platelet Count 367 X 10*3/uL (140-440); Potassium 4.3 mmol/L (3.5-5.5); RBC 4.24 X 10*6/uL (4.10-5.20); RDW 14.2 % (11.5-14.5); Total Bilirubin 0.3 mg/dL (0.30-1.20); Total Protein 6.9 g/dL (6.2-8.2); WBC 4.93 X 10*3/uL (4.50-10.00)
[2021-11-09 19:25] LABS: Bacteria,Urine None Seen /HPF (None Seen)
== END | disposition home or self-care (01) ==
LOC: LABPAT 10:21
PROVIDERS: ATTEND Orthopaedic Surgery
DX: Z01.818 Encounter for other preprocedural examination (principal); Z01.812 Encounter for preprocedural laboratory examination; M16.11 Unilateral primary osteoarthritis, right hip
CPT/HCPCS: 36415; 80053; 81001; 85027; 85610; 85730

== ENCOUNTER → 2021-11-11 | Outpatient (CLI) | payer MEDICARE ==
--- NOTE | 2021-11-11 12:39 | CT ---
EXAMINATION TYPE: CT abdomen pelvis wo con DATE OF EXAM: 11/11/2021 COMPARISON: 9 HISTORY: Left lower quadrant abdominal pain and diarrhea. CT DLP: 528.4 mGycm Examination of the solid and hollow viscera is limited given the lack of contrast. FINDINGS: LUNG BASES: No evidence for nodule. No evidence for infiltrate. LIVER/GB: The gallbladder is surgically absent. No space-occupying hepatic lesion. PANCREAS: No pancreatic mass identified. No inflammatory process seen. SPLEEN: No evidence for splenomegaly. No intrasplenic lesions seen. ADRENALS: No adrenal nodules identified. No evidence for thickening. KIDNEYS: No evidence for renal mass. No nephrolithiasis. No hydronephrosis. BOWEL: Appendix has a normal appearance. No evidence of bowel obstruction. No inflammatory process. S cattered sigmoid diverticulosis without diverticulitis. Lymph nodes: No evidence for adenopathy greater than 1 cm. Abdominal aorta: Atheromatous changes seen. No evidence for aneurysm. Genital organs: Hysterectomy changes are noted. Other: No significant abnormality. IMPRESSION: NO ACUTE INTRA-ABDOMINAL PROCESS SEEN.
== END | disposition home or self-care (01) ==
LOC: RADCTMAIN 12:07
PROVIDERS: ATTEND Family Medicine
DX: R10.32 Left lower quadrant pain (principal)
CPT/HCPCS: 74176

== ENCOUNTER 2021-11-16 10:42 | Inpatient (IN) | payer MEDICARE ==
[2021-11-15 15:07] VITALS: BMI 29.2
[~2021-11-16 10:42] MED LIST: ACETAMINOPHEN TAB 500 MG TAB PO PRN; DEXAMETHASONE SOD PHOSPHATE 10 MG/ML 1 ML VIAL IV PRN; DEXAMETHASONE SOD PHOSPHATE 4 MG/ML 1 ML VIAL IV ONE; DOCUSATE 100 MG CAP PO PRN; FAMOTIDINE 20 MG/2 ML VIAL IVP PRN; KETOROLAC 15 MG/ML 1 ML VIAL IVP PRN; ONDANSETRON 4 MG/2 ML VIAL IVP ONE; ONDANSETRON 4 MG/2 ML VIAL IVP PRN; TRANEXAMIC ACID IN NACL,ISO-OS 1,000 MG in SALINE 1 100ML.BAG IVPB PRN; fentaNYL (PF) 50 MCG/ML 2 ML AMP IV PRN; oxyCODONE ER 10 MG TAB.ER.12H PO PRN
[2021-11-16] MEDS ORDERED: LIDOCAINE 1% (10MG/ML) FOR IV START INTRADERMA ONE (11:23)
[2021-11-16] MEDS: LACTATED RINGERS 1,000 ML IV SCH (11:23)
[2021-11-16] MEDS ORDERED: ROPIVACAINE/EPI/CLONIDINE/KET 50 ML SYRINGE MISCELLANE PRN (11:50)
[2021-11-16 11:51] LABS: Glucose,Whole Blood 109 mg/dL (70-110)
[2021-11-16] MEDS ORDERED: MIDAZOLAM 2 MG/2 ML VIAL IVP ONE (13:10)
[2021-11-16] MEDS ORDERED: DEXAMETHASONE SOD PHOSPHATE 4 MG/ML 1 ML VIAL ONE (13:20)
[2021-11-16] MEDS ORDERED: HYDROmorphone (PF) 1 MG/ML ONE (13:20)
[2021-11-16] MEDS ORDERED: LIDOCAINE 2% INJ 20 MG/ML (2 ML VIAL) ONE (13:20)
[2021-11-16] MEDS ORDERED: ePHEDrine 50 MG/ML 1 ML VIAL ONE (13:20)
[2021-11-16] MEDS ORDERED: TRANEXAMIC ACID IN NACL,ISO-OS 1,000 MG/100 ML BAG ONE (13:20)
[2021-11-16] MEDS ORDERED: PROPOFOL 10 MG/ML 20 ML VIAL IV ONE (13:20)
[2021-11-16] MEDS ORDERED: fentaNYL (PF) 50 MCG/ML 2 ML AMP ONE (13:20)
[2021-11-16] MEDS ORDERED: SODIUM CHLORIDE 0.9% IRRIG 1,000 ML BTL IRRIGATION ONE (13:20)
[2021-11-16] MEDS ORDERED: ROCURONIUM 10 MG/ML (5 ML VIAL) IV ONE (13:20)
[2021-11-16] MEDS ORDERED: SUCCINYLCHOLINE CHLORIDE 200 MG/10 ML VIAL IV ONE (13:20)
[2021-11-16] MEDS ORDERED: ROPIVACAINE 5 MG/ML 30 ML VIAL ONE (13:20)
[2021-11-16] MEDS ORDERED: GLYCOPYRROLATE 0.2 MG/ML 2 ML VIAL ONE (13:20)
[2021-11-16] MEDS ORDERED: HEPARIN SODIUM,PORCINE 10,000 UNIT/ML 1 ML VIAL ONE (13:20)
--- NOTE | 2021-11-16 13:41 | P.ANPRN ---
Procedure Note - Anesthesia - Nerve Block Performed Right Erector Spinae Single Time Out Performed: Yes Date of Procedure: 11/16/21 Procedure Start Time: 13:07 Procedure Stop Time: 13:14 Location of Patient: PreOp Indication: Acute Post-Operative Pain, Requested by Surgeon Sedation Type: Sedate with meaningful contact maintained Preparation: Sterile Prep, Sterile Dressing Position: Prone Catheter: None Needle Types: On-Q Needle Gauge: 20 Ultrasound used to visualize needle placement: Yes Ultrasound used to observe medication spread: Yes Injectate: 0.5% Ropivacaine (see comment for volume) (30 ml + decadron 4 mg) Blood Aspirated: No Pain Paresthesia on Injection Noted: No Resistance on Injection: Normal Image Stored and Saved: Yes Events: Uneventful and Well Tolerated
[2021-11-16] MEDS ORDERED: LACTATED RINGERS 1,000 ML IV ONE ×2 (15:13→16:24)
[2021-11-16] MEDS ORDERED: VANCOMYCIN 1,000 MG VIAL MISCELLANE ONE (17:15)
[2021-11-16] MEDS ORDERED: HYDROcodone/APAP 5-325MG 1 EACH TAB PO PRN (18:18)
[2021-11-16] MEDS ORDERED: hydrOXYzine pamoate 25 MG CAP PO PRN (18:18)
[2021-11-16] MEDS ORDERED: NALOXONE 0.4 MG/ML 1 ML VIAL IV PRN (18:18)
[2021-11-16] MEDS ORDERED: ONDANSETRON 4 MG/2 ML VIAL IVP PRN (18:18)
[2021-11-16] MEDS ORDERED: HYDROmorphone 0.5 MG/0.5 ML SYRINGE IVP PRN ×2 (18:18)
[2021-11-16 18:33] LABS: HCT 32.8 % (34.0-46.0); HGB 10.3 gm/dL (11.4-16.0); Hypochromasia Slight; MCH 28.5 pg (25.0-35.0); MCHC 31.4 g/dL (31.0-37.0); Mean Platelet Volume 7.5; Platelet Count 560 k/uL (150-450); RDW 14.1 % (11.5-15.5); WBC 12.6 k/uL (3.8-10.6)
--- NOTE | 2021-11-16 18:41 | P.OP ---
Date of Procedure: 11/16/21 Preoperative Diagnosis: 1. Nonunion right intertrochanteric hip fracture 2. Chronic right hip pain 3. Type 2 diabetes Postoperative Diagnosis: Same Procedure(s) Performed: 1. Right complex direct anterior total hip arthroplasty (conversion of failed intramedullary hip screw for hip fracture to total hip replacement) 2. Removal of hardware, deep, right hip 22 modifier - a 22 modifier is appropriate due to the complexity of the surgical procedure requiring additional time and energy due to the prior hip fracture and altered anatomy. Implants: 1. [place] Trident II Acetabular Cup, Size #48 2. [place] [employer] Modular [id number] distal stem, 19-mm, +10 proximal body 3. Dual Mobility OD 38 mm, ID 22.2 mm, +0 neck Anesthesia: OLIMPIAA Surgeon: Garo Vee Safety Aide #1: Henok Cancino Estimated Blood Loss (ml): 900 IV fluids (ml): 1,200 Pathology: none sent Condition: stable Disposition: PACU Indications for Procedure: The patient sustained a right intertrochanteric hip fracture that was completely displaced one year ago. She underwent closed reduction and placement of a gamma nail by myself. She went on to develop a nonunion. I obtained a computed tomography scan to confirm the nonunion. We discussed revision open reduction internal fixation versus conversion to a total hip replacement. I sent the patient to a trauma surgeon, Dr. Rossi, for second opinion to discuss revision open reduction internal fixation. Dr. Rossi recommended conversion to total hip replacement which was my recommendation as well. The patient agreed and wished to proceed. Prior to surgery her right hip was aspirated to rule out infection as a cause of her nonunion. She also had inflammatory markers taken. All of this was negative for infection. We discussed the risks associated with surgery particularly infection, subsidence of the implants, dislocation, and need for further surgery given that this is more like a revision procedure. I had a long discussion with the patient in the office on the potential risks and complications of an elective total hip replacement through a direct anterior approach. Risks discussed include, but are certainly not limited to, risks from anesthesia, superficial infection requiring local wound care or antibiotics, deep maggie-prosthetic joint infection and the treatment required to eradicate infection, intraoperative fracture, postoperative periprosthetic fracture, damage to local blood vessels or nerves particularly the lateral femoral cutaneous nerve, delayed wound healing requiring local wound care or possibly surgical debridement, hip dislocation, leg length discrepancy, soft tissue irritation around the total hip implant such as iliopsoas tendinitis or trochanteric bursitis, wear and osteolysis from the implants, squeaking or benito ble noises, groin pain, thigh pain, heterotopic ossification, stiffness, aseptic loosening of the implants, dissatisfaction with surgical outcome, need for revision surgery, DVT, PE, swelling of the operative extremity, acute coronary event, stroke, failure to thrive, and possibly loss of life or limb. The patient understands that while these are the most common complications after an elective hip replacement there are certainly other less common complications possible. They were given ample time to ask questions regarding the potential complications of a hip replacement. Following our discussion the patient provided their verbal and written consent to go forward with an elective total hip replacement. Description of Procedure: The patient was identified in the preoperative holding area and the correct hip was marked with my initials. I reviewed the procedure and consent with the patient. All of their questions were answered. The patient was then brought back into the operating room by anesthesia. While on the [facility] anesthesia was administered by the anesthesia team. Preoperative antibiotics and tranexamic acid were also given. After the patient was under anesthesia I examined their ankles to determine their preoperative leg length discrepancy. The skin over the anterior aspect of the hip was shaved to remove hair over the site of planned incision. Both feet and ankles were padded with webril and boots for the [place] were applied. The patient was then carefully transferred onto the [place] table. A perineal post was immediately placed. The arms were placed on arm holders and were well-padded. Both boots were secured to the spars on the [place] table. The patient was positioned so that the pelvis was centered over the post. Nonsterile drapes were applied. A timeout was performed identifying the correct patient, operative extremity, and procedure. At this point fluoroscopy was brought in to take preoperative images of the pelvis and operative hip. Using the standing AP pelvis from the office as a template, a comparable image was obtained with fluoroscopy. A metallic bar was used to create a bi-ischial line for use as a reference to leg length adjustments during the procedure. Global offset was also measured on both the operative and nonoperative leg. Fluoroscopy was then brought out and a pre-scrub using a chlorhexidine scrub brush was performed. The operative limb was then prepped and draped in the standard sterile fashion. I began by addressing the gamma nail. The most proximal lateral incision was created with a scalpel dissection was carried down through the subcutaneous tissue to the tip of the greater trochanter. The nail was identified proximally and the set screw was backed off several rotations to allow removal of the lag screw. Attention was then turned to the second middle incision. An incision was made with a scalpel and dissection was carried down to the lag screw. The extraction device was inserted into the lag screw was carefully removed. Attention was then turned to the hip as it was difficult to thread the extraction device proximally into the nail this was overgrown with bone. An anterior longitudinal incision was made lateral and distal to the ASIS. The skin and subcutaneous tissues were incised sharply. The underlying tensor fascia was identified and incised in its midportion. The fascia was dissected free from the underlying muscle and the muscle belly was retracted. A blunt tipped cobra retractor was placed over the superior neck under the muscle fibers of the gluteus minimus. The deep enveloping fascia of the tensor was incised. The anterior leash of vessels were then identified and cauterized. The fascia between the rectus and the capsule was then incised and the pre-capsular fat was excised. A second Cobra was placed inferior to the neck. The interval between the rectus and iliocapsularis and the hip capsule was developed and a retractor was placed carefully over the anterior rim of the acetabulum. A T-shaped anterior capsulotomy was performed. It was difficult elevating the capsule due to scarring from her prior hip fracture. The superior capsular leaflet was left in place in the inferior capsular flap was excised. The Cobra retractors were placed intracapsularly. We then made a femoral neck osteotomy according to preoperative and intraoperative templating and confirmed the level of the osteotomy using fluoroscopic imaging. The femoral head was removed, passed off to the back table, and sized. The superior capsular flap was excised. Retractors were placed circumferentially exposing the acetabulum. We then circumferentially debrided the acetabulum free of labrum and osteophytes. The pulvinar was removed to fully visualize the cotyloid fossa. The acetabular bone was found to be very soft consistent with having a prior fracture of her hip and minimal arthritis. We then sequentially reamed to achieve peripheral fit and excellent bleeding subchondral bone. The socket was thoroughly irrigated. The acetabular component was impacted into the appropriate position using fluoroscopy to guide version, inclination, and depth of insertion taking care to have a comparable image of the AP pelvis to the standing image taken in the office. An excellent press-fit was achieved and final position was confirmed using fluoroscopy. The press fit was augmented with bony cancellus dome screws. The liner was then impacted into the socket. Attention was then turned to the femur. The remnant dorsal lateral capsule was excised. The short external rotators were visible and protected. The soft tissue was released until the nail was visualized proximally A bone hook was used to confirm appropriate translation of the trochanter away from the acetabulum. The leg was then extended and adducted and the bone hook was used to elevate the femur. The nail was identified proximally and circumferentially exposed. The leg was then elevated after the retractors had been removed. The most distal incision over the distal interlocking screw was created. The distal interlocking screw was removed and a cable was placed just distal to the screw tract for prophylaxis against inadvertent fracture when placing the stem reaming. The leg was then dropped and the proximal femur elevated. The short intramedullary hip screw was easily removed with an extraction device. We then used flexible reamers up to a size 14 mm reamer. We then reamed with the reamers from the set for a 155 mm distal stem up to a 16 mm diameter reamer which generated chatter. Fluoroscopy was brought in to verify the position of the stem and size. The final distal stem was dispensed and carefully tapped into place. We then reamed for the proximal body. A +10 trial proximal body was placed. A trial neck and head were then placed onto the broach and the hip was atraumatically reduced under direct visualization. External rotation to 90 was performed to assess stability. Fluoroscopy was brought in. An AP and lateral fluoroscopic image of the proximal femur was obtained to assess position and fill of the trial implants. An AP of the pelvis was then obtained and matched to the preoperative image taken. A bi-ischial bar was then placed and measurements were taken to assess changes in length and offset. The hip was then carefully dislocated, the proximal femur was exposed, and the trial implants were removed. The wound and proximal femur was thoroughly irrigated using sterile saline and pulsatile lavage. The final femoral implant was dispensed and gently tapped into place and the screw was fully engaged. The trunnion was cleansed and the final head was tapped into place to engage the [place] taper. The acetabulum was irrigated and visualized to be free of debris. The hip was carefully reduced. Stability was checked clinically with external rotation to 90 and there was no evidence of instability. Final fluoroscopic images were taken. The wound was then thoroughly irrigated and soaked with a dilute Betadine rinse for 3 minutes. 3 L of sterile saline was irrigated through the wound using pulsatile lavage. Local anesthetic cocktail was injected into the soft tissues around the surgical field. The wound was then closed in layers. A sterile dressing was placed over the surgical incision and drain site. The drapes were taken down and the patient was carefully transferred off of the [place] table. Following removal of the boots the leg lengths felt acceptable. The patient was then taken to recovery room having tolerated the procedure well. Henok Cancino PA-C was required as a skilled election assistant for patient positioning, surgical exposure, retraction, placement of implants, and closure of the surgical wound. PLAN: Due to the patient's poor bone quality, prior fragility fracture, and used to ream tapered stem I would like to keep her toe-touch weightbearing for 6 weeks. 2 doses of postoperative antibiotics. There is no sign of deep infection but due to this being a revision-type procedure would like to treat her with doxycycline 100 mg twice a day 6 weeks to lower her risk of infection. DVT prophylaxis with aspirin 81 mg twice a day based on preoperative risk stratification. Physical therapy for gait training.
--- NOTE | 2021-11-16 20:03 | FL ---
Intraoperative/procedural fluoroscopic services were provided. Total fluoroscopy time is 2 minutes 11 seconds with a total of 13 submitted images to PACS. Please see the operative/procedural note for fu rther details.
[2021-11-16 21:31] LABS: Glucose,Whole Blood 240 mg/dL (70-110)
[2021-11-16] MEDS: SENNOSIDES-DOCUSATE SODIUM 1 EACH TAB PO SCH (21:32)
[2021-11-16] MEDS: ASPIRIN 81 MG PO SCH (21:32)
[2021-11-17] MEDS: ASPIRIN 81 MG PO SCH ×2 (08:15→21:09)
[2021-11-17 08:23] LABS: Glucose,Whole Blood 190 mg/dL (70-110)
[2021-11-17] MEDS: DOXYCYCLINE 100 MG CAP PO SCH ×2 (10:09→21:08)
[2021-11-17 10:42] LABS: Basophils # (A) 0.01 X 10*3/uL (0.00-0.10); Basophils % (A) 0.1 %; Eosinophils # (A) 0 X 10*3/uL (0.04-0.35); Eosinophils % (A) 0 %; HCT 26.3 % (37.2-46.3); HGB 7.9 g/dL (12.0-15.0); Immature Grans, Automated 0.4 %; Lymphocytes # (A) 0.72 X 10*3/uL (0.90-5.00); Lymphocytes % (A) 7.3 %; MCH 27.7 pg (27.0-32.0); MCV 92.3 fL (80.0-97.0); Monocytes # (A) 1.09 X 10*3/uL (0.20-1.00); NRBC Per 100 WBC 0 /100 WBCS (0.0-0.0); Neutrophils # (A) 8.05 X 10*3/uL (1.80-7.70); Neutrophils % (A) 81.2 %; Platelet Count 363 X 10*3/uL (140-440); RBC 2.85 X 10*6/uL (4.10-5.20); RDW 14.5 % (11.5-14.5); WBC 9.91 X 10*3/uL (4.50-10.00)
[2021-11-17] MEDS ORDERED: PANTOPRAZOLE 40 MG TABLET PO PRN (10:50)
[2021-11-17] MEDS ORDERED: ESTRADIOL TRANSDERM SCH (11:00)
[2021-11-17] MEDS: LACTATED RINGERS 1,000 ML IV SCH (11:06)
[2021-11-17 11:10] LABS: Glucose,Whole Blood 191 mg/dL (70-110)
[2021-11-17] MEDS: HYDROmorphone 0.5 MG/0.5 ML SYRINGE IVP PRN ×3 (12:10→21:07)
[2021-11-17] MEDS: INSULIN ASPART (NovoLOG) 100 UNIT/ML VIAL SQ SCH ×2 (12:14→17:56)
--- NOTE | 2021-11-17 15:29 | P.PN ---
Subjective Progress Note Date: 11/17/21 This patient is a 71-year-old female who is status-post right complex direct anterior total hip arthroplasty with conversion of failed intramedullary hip screw for hip fracture to total hip replacement on 11/16/21. Today is post-operative day #1. The patient is seen and examined at bedside. She is currently up to the bedside chair and has already worked with physical therapy. She states the pain in her right hip is well controlled at this time. She tolerated her breakfast well. She denies chest pain, shortness of breath, nausea, vomiting. Vital signs stable. Objective - Vital Signs Vital signs: Vital Signs Temp 97.9 F 11/17/21 08:00 Pulse 77 11/17/21 08:00 Resp 16 11/17/21 02:00 BP 93/46 11/17/21 08:00 Pulse Ox 95 11/17/21 08:00 FiO2 Intake & Output 11/16/21 11/17/21 11/17/21 18:59 06:59 18:59 Intake Total 2750 340 Output Total 1400 200 Balance 1350 140 Weight 76 kg 76 kg Intake: IV 2750 Intake, IV Titration 340 Amount Lactated Ringers 1,000 ml 240 @ 20 mls/hr IV .Q24H [facility] Rx#:[id number] ceFAZolin 2 gm In Sodium 100 Chloride 0.9% 50 ml @ 100 mls/hr IVPB Q8H [facility] Rx#: [id number] Output: Urine 500 200 Estimated Blood Loss 900 Other: Voiding Method Indwelling Catheter Indwelling Catheter - Exam On examination, patient is currently up to the bedside chair. She is alert and oriented 3. On inspection of the right hip, there is a clean, dry, intact Opsite surgical dressings in place. No bleeding or drainage to the dressings. There is mild swelling of the thigh, the thigh is soft and compressible. Motor and sensory function is intact of the right lower extremity. Femoral nerve function intact. The right lower extremity is warm and well perfused with brisk capillary refill distally. Calf nontender. - Labs CBC & Chem 7: 11/17/21 06:47 Labs: Abnormal Lab Results - Last 24 Hours (Table) 11/16/21 11/16/21 11/17/21 Range/Units 17:45 21:30 06:47 WBC 12.6 H (3.8-10.6) k/uL RBC 3.60 L 2.85 L (3.80-5.40) m/uL Hgb 10.3 L 7.9 L (11.4-16.0) gm/dL Hct 32.8 L 26.3 L (34.0-46.0) % MCHC 30.0 L (32.0-37.0) g/dL Plt Count 560 H (150-450) k/uL Neutrophils # 8.05 H (1.80-7.70) X 10*3/uL Lymphocytes # 0.72 L (0.90-5.00) X 10*3/uL Monocytes # 1.09 H (0.20-1.00) X 10*3/uL Eosinophils # 0 L (0.04-0.35) X 10*3/uL POC Glucose (mg/dL) 240 H (70-110) mg/dL 11/17/21 11/17/21 Range/Units 08:21 11:09 WBC (3.8-10.6) k/uL RBC (3.80-5.40) m/uL Hgb (11.4-16.0) gm/dL Hct (34.0-46.0) % MCHC (32.0-37.0) g/dL Plt Count (150-450) k/uL Neutrophils # (1.80-7.70) X 10*3/uL Lymphocytes # (0.90-5.00) X 10*3/uL Monocytes # (0.20-1.00) X 10*3/uL Eosinophils # (0.04-0.35) X 10*3/uL POC Glucose (mg/dL) 190 H 191 H (70-110) mg/dL Assessment and Plan Assessment: Status-post right complex direct anterior total hip arthroplasty with conversion of failed intramedullary hip screw for hip fracture to total hip replacement on 11/16/21. Post-operative day #1. Plan: - Toe-touch weightbearing right lower extremity with a walker. - Physical therapy for gait and balance training. - Keep operative dressings intact. - Pain management as needed. Aspirin 81 mg twice a day 4 weeks for DVT prophylaxis. - Continue doxycycline 100 mg twice a day for wound healing prophylaxis. - Internal medicine for perioperative medical management. - Anticipate discharge home in the next 12 days.
[2021-11-17 16:25] LABS: Glucose,Whole Blood 207 mg/dL (70-110)
--- NOTE | 2021-11-17 16:55 | P.CONS ---
History of Present Illness - Reason for Consult Consult date: 11/17/21 - Chief Complaint Medical management - History of Present Illness 71-year-old woman with medical history of hypertension, diabetes, hyperlipidemia, hypothyroidism, depression presented for evaluation of conversion of failed intramedullary hip screw for hip fracture to total hip replacement. Medicine consulted by with surgery service for medical management. Patient has only complaints of pain in the right hip, but does not want narcotics to address this pain in preference of Tylenol. Patient otherwise denies fevers, chills, nausea, vomiting, chest pain, palpitations, sick be, presyncope, cough, dyspnea, abdominal pain, constipation, diarrhea, dysuria, dyschezia, numbness/weakness of extremities. Upon my arrival, patient is afebrile, 95/55, heart rate 86, 92% on 2 L nasal cannula. CBC shows a reduction of hemoglobin from 10.3 on admission to 7.9 today. No chemistries to review. All Systems reviewed and pertinent positives and negatives noted in HPI, all other symptoms are negative Gen: in no apparent distress, resting comfortably in bed Eyes: PERRL, no scleral injection or icterus HENT: normocephalic, atraumatic, good hearing acuity, moist mucous membranes Neck: no tracheal deviation, full range of motion Resp: good air exchange, breathing comfortably with no accessory muscle use, no tactile fremitus CVS: good distal perfusion x 4, no pitting edema GI: soft, NTTP, ND, no hepatosplenomegaly : no suprapubic tenderness, no CVAT, white catheter is present MSK: no clubbing, no cyanosis, no noted contractures of extremities Skin: no noted rashes, petechiae; temperature of skin is appropriate Neuro: moving all extremities without signs of weakness, CN II-XII intact Psych: cooperative, euthymic mood, insight and judgment intact Labs and imaging as above Assessment/plan: Hypertension Hyperlipidemia Hypothyroidism Diabetes type 2 Depression -Home medications reviewed and reconciled -BMP, magnesium tomorrow morning -Start oral iron -CBC tomorrow morning Status post total hip replacement -Care per primary team -PT/OT DVT prophylaxis with aspirin twice a day Patient is full code Past Medical History Past Medical History: Diabetes Mellitus, GERD/Reflux, Hyperlipidemia, Osteoarthritis (OA), Thyroid Disorder Additional Past Medical History / Comment(s): diarrhea, right femur fracture Dec 2020, History of Any Multi-Drug Resistant Organisms: None Reported Past Surgical History: Cholecystectomy, Hysterectomy, Joint Replacement Additional Past Surgical History / Comment(s): lt knee replacement, surgery for right femur fracture (Dec 2020), elder cataracts Past Anesthesia/Blood Transfusion Reactions: Previous Problems w/ Anesthesia, Motion Sickness Additional Past Anesthesia/Blood Transfusion Reaction / Comm: sensitive to anesthetic-took long time to come out after cataract surgery Past Psychological History: Anxiety Smoking Status: Never smoker Past Alcohol Use History: None Reported Past Drug Use History: None Reported - Past Family History Mother Family Medical History: Cancer Family Family Medical History: No Reported History Medications and Allergies Home Medications Medication Instructions Recorded Confirmed Type Fenofibrate [Lofibra] 160 mg PO DAILY 12/31/20 11/16/21 History Levothyroxine Sodium [Synthroid] 125 mcg PO DAILY 12/31/20 11/16/21 History Mv-Min/Folic/Vit [id number] 1 tab PO DAILY 12/31/20 11/16/21 History [Alive Women's 50 Plus Tablet] Omeprazole 20 mg PO DAILY PRN 12/31/20 11/16/21 History Turmeric Root Extract [Turmeric] 500 mg PO DAILY 12/31/20 11/16/21 History buPROPion HCL [Wellbutrin XL] 150 mg PO DAILY 12/31/20 11/16/21 History estradioL [estradioL (Once Weekly) 1 patch TRANSDERM DIRECTED 12/31/20 11/16/21 History 0.05 mg Patch] metFORMIN HCL [Glucophage] 1,000 mg PO BID 12/31/20 11/16/21 History sitaGLIPtin [Januvia] 100 mg PO DAILY 12/31/20 11/16/21 History Acetaminophen [Tylenol Extra 1,000 mg PO BID 08/15/21 11/16/21 History Strength] Magnesium 500 mg PO DAILY 08/15/21 11/16/21 History Calcium Citrate/Vitamin D3 2 each PO DAILY 09/28/21 11/16/21 History [Citracal + D Maximum Caplet] Cholecalciferol (Vitamin D3) 250 mcg PO DAILY 09/28/21 11/16/21 History [Vitamin D3 (125 MCG = 5,000 IU)] Citalopram Hydrobromide 20 mg PO QAM 09/28/21 11/16/21 History [Citalopram HBr] Allergies Allergy/AdvReac Type Severity Reaction Status Date / Time hydrocodone [From Vicodin] Allergy Confusion Verified 11/16/21 11:20 Penicillins Allergy Rash/Hives Verified 11/16/21 11:19 Sulfa (Sulfonamide Allergy Rash/Hives Verified 11/16/21 11:19 Antibiotics) dust,old Allergy Unknown Uncoded 11/16/21 11:19 formented stuff Allergy Unknown Uncoded 11/16/21 11:19 mold Allergy Unknown Uncoded 11/16/21 11:19 Physical Exam Osteopathic Statement: *. No significant issues noted on an osteopathic structural exam other than those noted in the History and Physical/Consult. Vitals: Vital Signs Temp Pulse Resp BP Pulse Ox 11/17/21 14:00 98.3 F 86 95/55 92 L 11/17/21 08:00 97.9 F 77 93/46 95 11/17/21 02:00 97.6 F 82 16 104/57 97 11/16/21 21:50 76 103/58 97 11/16/21 21:20 81 98/62 98 11/16/21 20:50 78 98/62 98 11/16/21 20:43 99 11/16/21 20:35 81 103/64 97 11/16/21 20:30 68 14 11/16/21 20:20 74 93/56 97 11/16/21 20:05 79 106/67 98 11/16/21 19:50 77 106/53 98 11/16/21 19:35 97.5 F L 75 106/66 97 11/16/21 18:53 68 14 117/53 100 11/16/21 18:38 69 4 L 109/52 100 11/16/21 18:23 74 14 105/55 100 11/16/21 18:08 97.5 F L 72 12 125/61 100 Intake and Output 11/17/21 11/17/21 11/17/21 06:59 14:59 22:59 Intake Total 340 Output Total 200 Balance 140 Intake: Intake, IV Titration 340 Amount Lactated Ringers 1,000 ml 240 @ 20 mls/hr IV .Q24H [facility] Rx#:[id number] ceFAZolin 2 gm In Sodium 100 Chloride 0.9% 50 ml @ 100 mls/hr IVPB Q8H [facility] Rx#: [id number] Output: Urine 200 Other: Voiding Method Indwelling Catheter Results CBC & Chem 7: 11/17/21 06:47 Labs: Abnormal Lab Results - Last 24 Hours (Table) 11/16/21 11/16/21 11/17/21 Range/Units 17:45 21:30 06:47 WBC 12.6 H (3.8-10.6) k/uL RBC 3.60 L 2.85 L (3.80-5.40) m/uL Hgb 10.3 L 7.9 L (11.4-16.0) gm/dL Hct 32.8 L 26.3 L (34.0-46.0) % MCHC 30.0 L (32.0-37.0) g/dL Plt Count 560 H (150-450) k/uL Neutrophils # 8.05 H (1.80-7.70) X 10*3/uL Lymphocytes # 0.72 L (0.90-5.00) X 10*3/uL Monocytes # 1.09 H (0.20-1.00) X 10*3/uL Eosinophils # 0 L (0.04-0.35) X 10*3/uL POC Glucose (mg/dL) 240 H (70-110) mg/dL 11/17/21 11/17/21 11/17/21 Range/Units 08:21 11:09 16:24 WBC (3.8-10.6) k/uL RBC (3.80-5.40) m/uL Hgb (11.4-16.0) gm/dL Hct (34.0-46.0) % MCHC (32.0-37.0) g/dL Plt Count (150-450) k/uL Neutrophils # (1.80-7.70) X 10*3/uL Lymphocytes # (0.90-5.00) X 10*3/uL Monocytes # (0.20-1.00) X 10*3/uL Eosinophils # (0.04-0.35) X 10*3/uL POC Glucose (mg/dL) 190 H 191 H 207 H (70-110) mg/dL
[2021-11-17 20:41] LABS: Glucose,Whole Blood 183 mg/dL (70-110)
[2021-11-17] MEDS: SENNOSIDES-DOCUSATE SODIUM 1 EACH TAB PO SCH (21:08)
[2021-11-18] MEDS: HYDROmorphone 0.5 MG/0.5 ML SYRINGE IVP PRN (03:46)
[2021-11-18] MEDS: LEVOTHYROXINE 125 MCG TAB PO SCH (05:46)
[2021-11-18 07:04] LABS: Glucose,Whole Blood 182 mg/dL (70-110)
[2021-11-18] MEDS: ACETAMINOPHEN TAB 325 MG TAB PO PRN ×2 (08:13→19:27)
[2021-11-18] MEDS: INSULIN ASPART (NovoLOG) 100 UNIT/ML VIAL SQ SCH ×3 (08:13→17:15)
[2021-11-18 09:46] LABS: African American GFR (CKD) 75.1 (60.0-200.0); Anion Gap 5.7 mmol/L (10.00-18.00); BUN/Creat Ratio 21.22 Ratio (12.00-20.00); Blood Urea Nitrogen 19.1 mg/dL (9.0-27.0); Calcium 7.8 mg/dL (8.7-10.3); Carbon Dioxide 27.3 mmol/L (20.0-27.5); Magnesium 1.7 mg/dL (1.5-2.4); Non-African American GFR(CKD) 64.8 (60.0-200.0); Potassium 4.2 mmol/L (3.5-5.5)
[2021-11-18] MEDS: CALCIUM CARB-VIT D 500 MG-5 MCG TAB PO SCH (09:52)
[2021-11-18] MEDS: CITALOPRAM HYDROBROMIDE 20 MG TAB PO SCH (09:52)
[2021-11-18] MEDS: DOXYCYCLINE 100 MG CAP PO SCH ×2 (09:52→21:56)
[2021-11-18] MEDS: MAGNESIUM OXIDE 400 MG TAB PO SCH (09:52)
[2021-11-18] MEDS: CHOLECALCIFEROL 125 MCG (5000 IU) TABLET PO SCH (09:52)
[2021-11-18] MEDS: FENOFIBRATE 160 MG TAB PO SCH (09:52)
[2021-11-18] MEDS: buPROPion XL 150 MG TAB.ER.24H PO SCH (09:52)
[2021-11-18] MEDS: MULTIVITAMINS, THERA 1 EACH TAB PO SCH (09:52)
[2021-11-18] MEDS: ASPIRIN 81 MG PO SCH ×2 (09:52→19:15)
[2021-11-18] MEDS: LACTATED RINGERS 1,000 ML IV SCH (09:53)
[2021-11-18 11:03] LABS: Glucose,Whole Blood 195 mg/dL (70-110)
--- NOTE | 2021-11-18 11:36 | P.DS ---
Providers Expected date of discharge: 11/18/21 Attending physician: Garo Vee Consults: 11/16/21 18:18 Consult Physician Routine Consulting Provider: Zelda Ochoa Consult Reason/Comments: medical management Do you want consulting provider notified?: Yes Primary care physician: Omid Hassan [facility] Course: This is a 71- year old female who has been followed in the office after susta ining right hip intertrochanteric hip fracture about a year ago. The patient underwent operative fixation with a right short gamma nail by Dr. Vee. 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 Nonoperative and operative treatments were discussed. Patient elected to undergo a right complex direct anterior total hip arthroplasty with conversion of failed intramedullary hip screw for hip fracture to total hip replacement on 11/16/21. Patient was evaluated by Prudence Martin NP and cleared for surgery. The patient was admitted to our service at [facility] on 11/16 following the procedure. The procedure was performed without complication or sequelae. The patient is doing fairly well postoperatively. Patient is ambulating with a walker and minimal assistance and minimal pain. Vital signs and labs are stable on postoperative day #2. Patient was examined bedside today. She states she is feeling well this morning. She states her pain in the right hip is controlled. She is tolerating her diet well. Patient is voiding without issue. Patient is comfortable discharging home today. She denies chest pain, shortness breath, nausea, vomiting, numbness or tingling of the right lower extremity. Patient has passed physical therapy to return home today. On examination, the patient is alert and orientated x3. On inspection of the right hip, the dressings are clean, dry, and intact. There is mild swelling of the thigh, the thigh soft and compressible. Motor and sensory function is intact of the right lower extremity. Femoral nerve function intact. The right dorsalis pedis pulse is easily palpable, right lower extremity warm and well perfused. Calf is soft and nontender to palpation. Patient is discharged home in good condition, pending medical clearance. Patient will follow-up with Dr. Vee in the office in 2 weeks. Please see med rec for accurate list of discharge medication. Plan - Discharge Summary Discharge Rx Participant: Yes New Discharge Prescriptions: New Aspirin 81 mg PO BID 30 Days #60 tab Docusate [Colace] 100 mg PO BID #60 capsule Doxycycline Monohydrate 100 mg PO BID 42 Days #84 cap Diclofenac Sodium [Voltaren] 75 mg PO BID 30 Days #60 tab HYDROcodone/APAP 5-325MG [[place] 5-325] 1 - 2 tab PO Q6HR PRN 7 Days #32 tab PRN Reason: Pain Omeprazole 40 mg PO DAILY 30 Days #30 cap No Action Turmeric Root Extract [Turmeric] 500 mg PO DAILY metFORMIN HCL [Glucophage] 1,000 mg PO BID Calcium Citrate/Vitamin D3 [Citracal + D Maximum Caplet] 2 each PO DAILY Cholecalciferol (Vitamin D3) [Vitamin D3 (125 MCG = 5,000 IU)] 250 mcg PO DAILY estradioL [estradioL (Once Weekly) 0.05 mg Patch] 1 patch TRANSDERM DIRECTED buPROPion HCL [Wellbutrin XL] 150 mg PO DAILY Mv-Min/Folic/Vit K/Lut/[id number] [Alive Women's 50 Plus Tablet] 1 tab PO DAILY sitaGLIPtin [Januvia] 100 mg PO DAILY Omeprazole 20 mg PO DAILY PRN PRN Reason: Heartburn Levothyroxine Sodium [Synthroid] 125 mcg PO DAILY Fenofibrate [Lofibra] 160 mg PO DAILY Magnesium 500 mg PO DAILY Acetaminophen [Tylenol Extra Strength] 1,000 mg PO BID Citalopram Hydrobromide [Citalopram HBr] 20 mg PO QAM Discharge Medication List Fenofibrate [Lofibra] 160 mg PO DAILY 12/31/20 [History] Levothyroxine Sodium [Synthroid] 125 mcg PO DAILY 12/31/20 [History] Mv-Min/Folic/Vit K/Lut/[id number] [Alive Women's 50 Plus Tablet] 1 tab PO DAILY 12/31/20 [History] Omeprazole 20 mg PO DAILY PRN 12/31/20 [History] Turmeric Root Extract [Turmeric] 500 mg PO DAILY 12/31/20 [History] buPROPion HCL [Wellbutrin XL] 150 mg PO DAILY 12/31/20 [History] estradioL [estradioL (Once Weekly) 0.05 mg Patch] 1 patch TRANSDERM DIRECTED 12/31/20 [History] metFORMIN HCL [Glucophage] 1,000 mg PO BID 12/31/20 [History] sitaGLIPtin [Januvia] 100 mg PO DAILY 12/31/20 [History] Acetaminophen [Tylenol Extra Strength] 1,000 mg PO BID 08/15/21 [History] Magnesium 500 mg PO DAILY 08/15/21 [History] Calcium Citrate/Vitamin D3 [Citracal + D Maximum Caplet] 2 each PO DAILY 09/28/21 [History] Cholecalciferol (Vitamin D3) [Vitamin D3 (125 MCG = 5,000 IU)] 250 mcg PO DAILY 09/28/21 [History] Citalopram Hydrobromide [Citalopram HBr] 20 mg PO QAM 09/28/21 [History] Aspirin 81 mg PO BID 30 Days #60 tab 11/18/21 [Rx] Diclofenac Sodium [Voltaren] 75 mg PO BID 30 Days #60 tab 11/18/21 [Rx] Docusate [Colace] 100 mg PO BID #60 capsule 11/18/21 [Rx] Doxycycline Monohydrate 100 mg PO BID 42 Days #84 cap 11/18/21 [Rx] HYDROcodone/APAP 5-325MG [[place] 5-325] 1 - 2 tab PO Q6HR PRN 7 Days #32 tab 11/18/21 [Rx] Omeprazole 40 mg PO DAILY 30 Days #30 cap 11/18/21 [Rx] Follow up Appointment(s)/Referral(s): Michelle Medina [NON-STAFF] - As Needed Garo Vee MD [Medical Doctor] - 2 Weeks Activity/Diet/Wound Care/Special Instructions: Toe-touch weightbearing operative extremity with walker. Keep operative dressings intact. Call the office if dressing becomes saturated or falls off. May shower over the dressings. Take pain medications as needed. Aspirin 81 mg twice a day 4 weeks for blood clot prevention. Take doxycycline as prescribed for wound healing prophylaxis. Follow up in the office in [address] Vee. Call the office with any questions or concerns, Discharge Disposition: HOME WITH HOME HEALTH SERVICES
[2021-11-18 11:47] LABS: Basophils # (A) 0.01 X 10*3/uL (0.00-0.10); Basophils % (A) 0.2 %; Eosinophils # (A) 0 X 10*3/uL (0.04-0.35); Eosinophils % (A) 0 %; HCT 19.8 % (37.2-46.3); HGB 6.2 g/dL (12.0-15.0); Immature Grans, Automated 0.4 %; Lymphocytes # (A) 0.78 X 10*3/uL (0.90-5.00); Lymphocytes % (A) 16.1 %; MCH 28.7 pg (27.0-32.0); MCHC 31.3 g/dL (32.0-37.0); MCV 91.7 fL (80.0-97.0); Mean Platelet Volume 9.9 fL (9.5-12.2); Monocytes # (A) 0.56 X 10*3/uL (0.20-1.00); Monocytes % (A) 11.6 %; NRBC Per 100 WBC 0 /100 WBCS (0.0-0.0); Neutrophils # (A) 3.47 X 10*3/uL (1.80-7.70); Neutrophils % (A) 71.7 %; Platelet Count 210 X 10*3/uL (140-440); RBC 2.16 X 10*6/uL (4.10-5.20); RDW 14.6 % (11.5-14.5); WBC 4.84 X 10*3/uL (4.50-10.00)
--- NOTE | 2021-11-18 13:12 | P.PN ---
Subjective Progress Note Date: 11/18/21 Pt hgb dropped to 6.2 today. Feeling weak overall, but pain is better. Gen: in no apparent distress, resting comfortably in bed Eyes: PERRL, no scleral injection or icterus HENT: normocephalic, atraumatic, good hearing acuity, moist mucous membranes Neck: no tracheal deviation, full range of motion Resp: good air exchange, breathing comfortably with no accessory muscle use, no tactile fremitus CVS: good distal perfusion x 4, no pitting edema GI: soft, NTTP, ND, no hepatosplenomegaly : no suprapubic tenderness, no CVAT, white catheter is present MSK: no clubbing, no cyanosis, no noted contractures of extremities Skin: no noted rashes, petechiae; temperature of skin is appropriate Neuro: moving all extremities without signs of weakness, CN II-XII intact Psych: cooperative, euthymic mood, insight and judgment intact Labs and imaging as above Assessment/plan: Hypertension Hyperlipidemia Hypothyroidism Diabetes type 2 Depression Acute Blood Loss Anemia, expected outcome of surgery -Home medications reviewed and reconciled -BMP, magnesium tomorrow morning -Start oral iron -tranfuse 1 U PRBC -CBC tomorrow morning Status post total hip replacement -Care per primary team -PT/OT DVT prophylaxis with aspirin twice a day Patient is full code Objective - Vital Signs Vital signs: Vital Signs Temp 99.4 F 11/18/21 08:00 Pulse 78 11/18/21 08:00 Resp 15 11/18/21 02:00 BP 103/56 11/18/21 08:00 Pulse Ox 94 L 11/18/21 08:00 FiO2 Intake & Output 11/17/21 11/18/21 11/18/21 18:59 06:59 18:59 Output Total 1750 Balance -1750 Output: Urine 1750 Other: Voiding Method Indwelling Catheter Indwelling Catheter # Voids 5 1 # Bowel Movements 1 - Labs CBC & Chem 7: 11/18/21 06:03 11/18/21 06:03 Labs: Abnormal Lab Results - Last 24 Hours (Table) 11/17/21 11/17/21 11/18/21 Range/Units 16:24 20:40 06:03 RBC 2.16 L (4.10-5.20) X 10*6/uL Hgb 6.2 L* (12.0-15.0) g/dL Hct 19.8 L* (37.2-46.3) % MCHC 31.3 L (32.0-37.0) g/dL RDW 14.6 H (11.5-14.5) % Lymphocytes # 0.78 L (0.90-5.00) X 10*3/uL Eosinophils # 0 L (0.04-0.35) X 10*3/uL Anion Gap (10.00-18.00) mmol/L BUN/Creatinine Ratio (12.00-20.00) Ratio Glucose (70-110) mg/dL POC Glucose (mg/dL) 207 H 183 H (70-110) mg/dL Calcium (8.7-10.3) mg/dL 11/18/21 11/18/21 11/18/21 Range/Units 06:03 07:02 11:00 RBC (4.10-5.20) X 10*6/uL Hgb (12.0-15.0) g/dL Hct (37.2-46.3) % MCHC (32.0-37.0) g/dL RDW (11.5-14.5) % Lymphocytes # (0.90-5.00) X 10*3/uL Eosinophils # (0.04-0.35) X 10*3/uL Anion Gap 5.70 L (10.00-18.00) mmol/L BUN/Creatinine Ratio 21.22 H (12.00-20.00) Ratio Glucose 163 H (70-110) mg/dL POC Glucose (mg/dL) 182 H 195 H (70-110) mg/dL Calcium 7.8 L (8.7-10.3) mg/dL
[2021-11-18] MEDS: HYDROcodone/APAP 5-325MG 1 EACH TAB PO PRN ×2 (15:22→21:55)
[2021-11-18 17:03] LABS: Glucose,Whole Blood 187 mg/dL (70-110)
[2021-11-18 20:30] LABS: Glucose,Whole Blood 206 mg/dL (70-110)
[2021-11-18] MEDS: SENNOSIDES-DOCUSATE SODIUM 1 EACH TAB PO SCH (21:56)
[2021-11-19] MEDS: LEVOTHYROXINE 125 MCG TAB PO SCH (05:23)
[2021-11-19 07:02] LABS: Glucose,Whole Blood 187 mg/dL (70-110)
[2021-11-19] MEDS: HYDROcodone/APAP 5-325MG 1 EACH TAB PO PRN ×2 (07:16→14:12)
[2021-11-19] MEDS: CHOLECALCIFEROL 125 MCG (5000 IU) TABLET PO SCH (07:16)
[2021-11-19] MEDS: ASPIRIN 81 MG PO SCH (07:17)
[2021-11-19] MEDS: CITALOPRAM HYDROBROMIDE 20 MG TAB PO SCH (07:17)
[2021-11-19] MEDS: MULTIVITAMINS, THERA 1 EACH TAB PO SCH (07:17)
[2021-11-19] MEDS: CALCIUM CARB-VIT D 500 MG-5 MCG TAB PO SCH (07:17)
[2021-11-19] MEDS: MAGNESIUM OXIDE 400 MG TAB PO SCH (07:18)
[2021-11-19] MEDS: DOXYCYCLINE 100 MG CAP PO SCH (07:18)
[2021-11-19] MEDS: FENOFIBRATE 160 MG TAB PO SCH (07:18)
[2021-11-19] MEDS: buPROPion XL 150 MG TAB.ER.24H PO SCH (07:19)
[2021-11-19] MEDS: INSULIN ASPART (NovoLOG) 100 UNIT/ML VIAL SQ SCH ×2 (07:19→11:47)
[2021-11-19] MEDS: LACTATED RINGERS 1,000 ML IV SCH (07:26)
[2021-11-19 07:56] VITALS: BP 120/68; PULSE 89; RESP 18; TEMP 100
--- NOTE | 2021-11-19 11:22 | P.PN ---
Subjective Progress Note Date: 11/19/21 Pt hgb dropped to 6.2 yesterday, rec'd 1 U PRBC, pending repeat CBC. Feeling weak overall, but pain is better, weakness is better as well from yesterday. Gen: in no apparent distress, resting comfortably in bed Eyes: PERRL, no scleral injection or icterus HENT: normocephalic, atraumatic, good hearing acuity, moist mucous membranes Neck: no tracheal deviation, full range of motion Resp: good air exchange, breathing comfortably with no accessory muscle use, no tactile fremitus CVS: good distal perfusion x 4, no pitting edema GI: soft, NTTP, ND, no hepatosplenomegaly : no suprapubic tenderness, no CVAT, white catheter is present MSK: no clubbing, no cyanosis, no noted contractures of extremities Skin: no noted rashes, petechiae; temperature of skin is appropriate Neuro: moving all extremities without signs of weakness, CN II-XII intact Psych: cooperative, euthymic mood, insight and judgment intact Labs and imaging as above Assessment/plan: Hypertension Hyperlipidemia Hypothyroidism Diabetes type 2 Depression Acute Blood Loss Anemia, expected outcome of surgery -Home medications reviewed and reconciled -BMP, magnesium tomorrow morning -Start oral iron -tranfuse 1 U PRBC -CBC tomorrow morning Status post total hip replacement -Care per primary team -PT/OT DVT prophylaxis with aspirin twice a day Patient is full code Objective - Vital Signs Vital signs: Vital Signs Temp 100.0 F H 11/19/21 07:55 Pulse 89 11/19/21 07:55 Resp 18 11/19/21 07:55 BP 120/68 11/19/21 07:55 Pulse Ox 92 L 11/19/21 07:55 FiO2 Intake & Output 11/18/21 11/19/21 11/19/21 18:59 06:59 18:59 Intake Total 1300 Balance 1300 Intake: Intake, IV Titration 240 Amount Lactated Ringers 1,000 ml 240 @ 20 mls/hr IV .Q24H KARTIK Rx#:[id number] Oral 750 Blood Product 310 Rc As-1 Unit 310 [id number] Other: Voiding Method Toilet # Voids 3 # Bowel Movements 1 - Labs CBC & Chem 7: 11/18/21 06:03 11/18/21 06:03 Labs: Abnormal Lab Results - Last 24 Hours (Table) 11/18/21 11/18/21 11/18/21 Range/Units 06:03 12:46 17:01 RBC 2.16 L (4.10-5.20) X 10*6/uL Hgb 6.2 L* (12.0-15.0) g/dL Hct 19.8 L* (37.2-46.3) % MCHC 31.3 L (32.0-37.0) g/dL RDW 14.6 H (11.5-14.5) % Lymphocytes # 0.78 L (0.90-5.00) X 10*3/uL Eosinophils # 0 L (0.04-0.35) X 10*3/uL POC Glucose (mg/dL) 187 H (70-110) mg/dL Crossmatch See Detail 11/18/21 11/19/21 Range/Units 20:28 07:01 RBC (4.10-5.20) X 10*6/uL Hgb (12.0-15.0) g/dL Hct (37.2-46.3) % MCHC (32.0-37.0) g/dL RDW (11.5-14.5) % Lymphocytes # (0.90-5.00) X 10*3/uL Eosinophils # (0.04-0.35) X 10*3/uL POC Glucose (mg/dL) 206 H 187 H (70-110) mg/dL Crossmatch
[2021-11-19 11:29] LABS: Basophils # (A) 0.02 X 10*3/uL (0.00-0.10); Basophils % (A) 0.3 %; Eosinophils # (A) 0.03 X 10*3/uL (0.04-0.35); Eosinophils % (A) 0.5 %; HCT 22.6 % (37.2-46.3); HGB 7.1 g/dL (12.0-15.0); Immature Grans, Automated 0.5 %; Lymphocytes # (A) 0.92 X 10*3/uL (0.90-5.00); Lymphocytes % (A) 13.9 %; MCH 27.7 pg (27.0-32.0); MCHC 31.4 g/dL (32.0-37.0); MCV 88.3 fL (80.0-97.0); Mean Platelet Volume 9.8 fL (9.5-12.2); Monocytes # (A) 0.63 X 10*3/uL (0.20-1.00); Monocytes % (A) 9.5 %; NRBC Per 100 WBC 0 /100 WBCS (0.0-0.0); Neutrophils # (A) 4.97 X 10*3/uL (1.80-7.70); Neutrophils % (A) 75.3 %; Platelet Count 241 X 10*3/uL (140-440); RBC 2.56 X 10*6/uL (4.10-5.20)
[2021-11-19 11:41] LABS: Glucose,Whole Blood 199 mg/dL (70-110)
== END 2021-11-19 15:20 | disposition home health service (06) | DRG 522 ==
LOC: OR 10:42 → 4SSUR 17:58 → OR 11-18 13:09 → 4SSUR 11-18 18:28
PROVIDERS: ADMIT Orthopaedic Surgery; ATTEND Orthopaedic Surgery
PROC: 0SR902A Replacement of Right Hip Joint with Metal on Polyethylene Synthetic Substitute, Uncemented, Open Approach (ICD-10-PCS; principal; 2021-11-16 12:30)
PROC: 0QP704Z Removal of Internal Fixation Device from Left Upper Femur, Open Approach (ICD-10-PCS; principal; 2021-11-16 12:30)
PROC: 30233N1 Transfusion of Nonautologous Red Blood Cells into Peripheral Vein, Percutaneous Approach (ICD-10-PCS; 2021-11-18)
DX: S72.141K Displaced intertrochanteric fracture of right femur, subsequent encounter for closed fracture with nonunion (principal); D62 Acute posthemorrhagic anemia; E11.9 Type 2 diabetes mellitus without complications; I10 Essential (primary) hypertension; E03.9 Hypothyroidism, unspecified; E78.5 Hyperlipidemia, unspecified; K21.9 Gastro-esophageal reflux disease without esophagitis; F41.9 Anxiety disorder, unspecified; F32.A Depression, unspecified; M19.90 Unspecified osteoarthritis, unspecified site; Z79.890 Hormone replacement therapy; Z79.84 Long term (current) use of oral hypoglycemic drugs; Z79.899 Other long term (current) drug therapy; Z96.652 Presence of left artificial knee joint; Z88.5 Allergy status to narcotic agent; Z88.0 Allergy status to penicillin; Z88.2 Allergy status to sulfonamides; Z91.048 Other nonmedicinal substance allergy status
CPT/HCPCS: 64999; 73501; 80048; 83735; 85025; 85027; 86850; 86891; 86900; 86901; 86920; 94760

== ENCOUNTER 2021-11-25 14:12 | Emergency (ER) | payer MEDICARE ==
[2021-11-25 14:17] VITALS: TEMP 97.9
[2021-11-25] MEDS ORDERED: ONDANSETRON 4 MG/2 ML VIAL IVP STA (16:25)
[2021-11-25] MEDS ORDERED: SODIUM CHLORIDE 0.9% 1,000 ML IV STA (16:25)
--- NOTE | 2021-11-25 16:34 | ED ---
General Adult HPI - General Chief complaint: Recheck/Abnormal Lab/Rx Stated complaint: Abnormal labs Time Seen by Provider: 11/25/21 16:04 Source: patient, family Mode of arrival: wheelchair Limitations: no limitations - History of Present Illness Initial comments: Patient is a 71-year-old female with recent hip replacement on 11/[address] Vee who presents to the emergency department with chief complaint of weakness. Patient states while in the hospital her hemoglobin was low. She was given 1 unit of blood. States she has felt mildly weak and fatigued at home. States her medications are making her very nauseous which is causing her to eat and drink much less than her usual. Had one episode of vomiting yesterday after taking pills, nonbloody. Denies fever, chills, abdominal pain. Patient's daughter notes that home nurse had trouble drawing blood yesterday due to dehydration. Patient states she has drink more fluids since then. Today her home nurse told her it is a good idea that she comes to the hospital and checks on her hemoglobin. Patient denies blood in stool. Denies chest pain and shortness of breath. States her hip pain is tolerable. Currently taking Tylenol 3 for pain. - Related Data Home Medications Medication Instructions Recorded Confirmed Fenofibrate [Lofibra] 160 mg PO DAILY 12/31/20 11/16/21 Levothyroxine Sodium [Synthroid] 125 mcg PO DAILY 12/31/20 11/16/21 Mv-Min/Folic/Vit K/Lut/Pmpu900 1 tab PO DAILY 12/31/20 11/16/21 [Alive Women's 50 Plus Tablet] Omeprazole 20 mg PO DAILY PRN 12/31/20 11/16/21 Turmeric Root Extract [Turmeric] 500 mg PO DAILY 12/31/20 11/16/21 buPROPion HCL [Wellbutrin XL] 150 mg PO DAILY 12/31/20 11/16/21 estradioL [estradioL (Once Weekly) 1 patch TRANSDERM DIRECTED 12/31/20 11/16/21 0.05 mg Patch] metFORMIN HCL [Glucophage] 1,000 mg PO BID 12/31/20 11/16/21 sitaGLIPtin [Januvia] 100 mg PO DAILY 12/31/20 11/16/21 Acetaminophen [Tylenol Extra 1,000 mg PO BID 08/15/21 11/16/21 Strength] Magnesium 500 mg PO DAILY 08/15/21 11/16/21 Calcium Citrate/Vitamin D3 2 each PO DAILY 09/28/21 11/16/21 [Citracal + D Maximum Caplet] Cholecalciferol (Vitamin D3) 250 mcg PO DAILY 09/28/21 11/16/21 [Vitamin D3 (125 MCG = 5,000 IU)] Citalopram Hydrobromide 20 mg PO QAM 09/28/21 11/16/21 [Citalopram HBr] Previous Rx's Medication Instructions Recorded Aspirin 81 mg PO BID 30 Days #60 tab 11/18/21 Diclofenac Sodium [Voltaren] 75 mg PO BID 30 Days #60 tab 11/18/21 Docusate [Colace] 100 mg PO BID #60 capsule 11/18/21 Doxycycline Monohydrate 100 mg PO BID 42 Days #84 cap 11/18/21 HYDROcodone/APAP 5-325MG [[place] 1 - 2 tab PO Q6HR PRN 7 Days #32 11/18/21 5-325] tab Omeprazole 40 mg PO DAILY 30 Days #30 cap 11/18/21 Ondansetron Odt [Zofran Odt] 4 mg PO Q8HR PRN #21 tab 11/25/21 Allergies Allergy/AdvReac Type Severity Reaction Status Date / Time hydrocodone [From Vicodin] Allergy Confusion Verified 11/25/21 14:17 Penicillins Allergy Rash/Hives Verified 11/25/21 14:17 Sulfa (Sulfonamide Allergy Rash/Hives Verified 11/25/21 14:17 Antibiotics) dust,old Allergy Unknown Uncoded 11/25/21 14:17 formented stuff Allergy Unknown Uncoded 11/25/21 14:17 mold Allergy Unknown Uncoded 11/25/21 14:17 Review of Systems ROS Statement: Those systems with pertinent positive or pertinent negative responses have been documented in the HPI. ROS Other: All systems not noted in ROS Statement are negative. Past Medical History Past Medical History: Diabetes Mellitus, GERD/Reflux, Hyperlipidemia, Osteoarthritis (OA), Thyroid Disorder Additional Past Medical History / Comment(s): diarrhea, right femur fracture Dec 2020, History of Any Multi-Drug Resistant Organisms: None Reported Past Surgical History: Cholecystectomy, Hysterectomy, Joint Replacement Additional Past Surgical History / Comment(s): lt knee replacement, surgery for right femur fracture (Dec 2020), elder cataracts. right hip replacement 11/16/2021 Past Anesthesia/Blood Transfusion Reactions: Previous Problems w/ Anesthesia, Motion Sickness Additional Past Anesthesia/Blood Transfusion Reaction / Comment(s): sensitive to anesthetic-took long time to come out after cataract surgery Past Psychological History: Anxiety Smoking Status: Never smoker Past Alcohol Use History: None Reported Past Drug Use History: None Reported - Past Family History Mother Family Medical History: Cancer Family Family Medical History: No Reported History General Exam Limitations: no limitations General appearance: alert, in no apparent distress Head exam: Present: atraumatic, normocephalic, normal inspection ENT exam: Present: normal oropharynx, mucous membranes dry (mild ) Respiratory exam: Present: normal lung sounds bilaterally. Absent: respiratory distress, wheezes, rales, rhonchi, stridor Cardiovascular Exam: Present: regular rate, normal rhythm, normal heart sounds. Absent: systolic murmur, diastolic murmur, rubs, gallop, clicks GI/Abdominal exam: Present: soft, normal bowel sounds. Absent: distended, tenderness, guarding, rebound, rigid Extremities exam: Present: normal inspection, full ROM. Absent: tenderness Neurological exam: Present: alert, oriented X3, CN II-XII intact Psychiatric exam: Present: normal affect, normal mood Skin exam: Present: warm, dry, intact, normal color. Absent: rash Course Vital Signs 11/25/21 14:13 Temperature 97.9 F Pulse Rate 76 Respiratory 20 Rate Blood Pressure 119/51 O2 Sat by Pulse 98 Oximetry Medical Decision Making - Medical Decision Making This is a 71-year-old female with recent hip replacement presenting with weakness. Thorough history and examination were performed. Patient well- appearing. Mucous membranes mildly dry. EKG shows sinus rhythm with no new ST or T-wave changes. Laboratory studies obtained. Hemoglobin is stable at 8.9, increased from 7.1 prior to discharge. Troponin is within normal limits. Kidney function is relatively normal. COVID- 19 is not detected. Patient will be discharged with Zofran for nausea. She is encouraged to eat prior to taking medication. She will follow-up with Dr. Lewis at her appointment next week. Dr. Pereira is my attending. - Lab Data Result diagrams: 11/25/21 16:49 11/25/21 16:49 Lab Results 11/25/21 11/25/21 11/25/21 Range/Units 16:49 16:49 16:49 WBC 6.3 (3.8-10.6) k/uL RBC 3.22 L (3.80-5.40) m/uL Hgb 8.9 L (11.4-16.0) gm/dL Hct 29.4 L (34.0-46.0) % MCV 91.2 (80.0-100.0) fL MCH 27.6 (25.0-35.0) pg MCHC 30.3 L (31.0-37.0) g/dL RDW 15.0 (11.5-15.5) % Plt Count 735 H (150-450) k/uL MPV 7.0 Neutrophils % 72 % Lymphocytes % 17 % Monocytes % 5 % Eosinophils % 3 % Basophils % 1 % Neutrophils # 4.5 (1.3-7.7) k/uL Lymphocytes # 1.1 (1.0-4.8) k/uL Monocytes # 0.3 (0-1.0) k/uL Eosinophils # 0.2 (0-0.7) k/uL Basophils # 0.1 (0-0.2) k/uL Hypochromasia Moderate Sodium 138 (137-145) mmol/L Potassium 3.9 (3.5-5.1) mmol/L Chloride 99 (98-107) mmol/L Carbon Dioxide 26 (22-30) mmol/L Anion Gap 13 mmol/L BUN 23 H (7-17) mg/dL Creatinine 0.92 (0.52-1.04) mg/dL Est GFR (CKD-EPI)AfAm 73 (>60 ml/min/1.73 sqM) Est GFR (CKD-EPI)NonAf 64 (>60 ml/min/1.73 sqM) Glucose 131 H (74-99) mg/dL Calcium 9.3 (8.4-10.2) mg/dL Magnesium 1.4 L (1.6-2.3) mg/dL Total Bilirubin 0.3 (0.2-1.3) mg/dL AST 30 (14-36) U/L ALT 27 (4-34) U/L Alkaline Phosphatase 57 (38-126) U/L Troponin I (0.000-0.034) ng/mL Total Protein 6.6 (6.3-8.2) g/dL Albumin 3.9 (3.5-5.0) g/dL Urine Color Yellow Urine Appearance Clear (Clear) Urine pH 5.5 (5.0-8.0) Ur Specific [place] 1.029 (1.001-1.035) Urine Protein Trace H (Negative) Urine Glucose (UA) Negative (Negative) Urine Ketones Negative (Negative) Urine Blood Negative (Negative) Urine Nitrite Negative (Negative) Urine Bilirubin Negative (Negative) Urine Urobilinogen 2.0 (<2.0) mg/dL Ur Leukocyte Esterase Small H (Negative) Urine RBC 6 H (0-5) /hpf Urine WBC 5 (0-5) /hpf Ur Squamous Epith Cells 1 (0-4) /hpf Urine Mucus Rare H (None) /hpf Coronavirus (PCR) (Not Detectd) 11/25/21 11/25/21 Range/Units 16:49 16:49 WBC (3.8-10.6) k/uL RBC (3.80-5.40) m/uL Hgb (11.4-16.0) gm/dL Hct (34.0-46.0) % MCV (80.0-100.0) fL MCH (25.0-35.0) pg MCHC (31.0-37.0) g/dL RDW (11.5-15.5) % Plt Count (150-450) k/uL MPV Neutrophils % % Lymphocytes % % Monocytes % % Eosinophils % % Basophils % % Neutrophils # (1.3-7.7) k/uL Lymphocytes # (1.0-4.8) k/uL Monocytes # (0-1.0) k/uL Eosinophils # (0-0.7) k/uL Basophils # (0-0.2) k/uL Hypochromasia Sodium (137-145) mmol/L Potassium (3.5-5.1) mmol/L Chloride (98-107) mmol/L Carbon Dioxide (22-30) mmol/L Anion Gap mmol/L BUN (7-17) mg/dL Creatinine (0.52-1.04) mg/dL Est GFR (CKD-EPI)AfAm (>60 ml/min/1.73 sqM) Est GFR (CKD-EPI)NonAf (>60 ml/min/1.73 sqM) Glucose (74-99) mg/dL Calcium (8.4-10.2) mg/dL Magnesium (1.6-2.3) mg/dL Total Bilirubin (0.2-1.3) mg/dL AST (14-36) U/L ALT (4-34) U/L Alkaline Phosphatase (38-126) U/L Troponin I <0.012 (0.000-0.034) ng/mL Total Protein (6.3-8.2) g/dL Albumin (3.5-5.0) g/dL Urine Color Urine Appearance (Clear) Urine pH (5.0-8.0) Ur Specific [place] (1.001-1.035) Urine Protein (Negative) Urine Glucose (UA) (Negative) Urine Ketones (Negative) Urine Blood (Negative) Urine Nitrite (Negative) Urine Bilirubin (Negative) Urine Urobilinogen (<2.0) mg/dL Ur Leukocyte Esterase (Negative) Urine RBC (0-5) /hpf Urine WBC (0-5) /hpf Ur Squamous Epith Cells (0-4) /hpf Urine Mucus (None) /hpf Coronavirus (PCR) Not Detected (Not Detectd) Disposition Clinical Impression: Nausea & vomiting, Status post hip surgery, Weakness Disposition: HOME SELF-CARE Condition: Good Instructions (If sedation given, give patient instructions): Acute Nausea and Vomiting (ED) Additional Instructions: Take medication as directed. Try to eat a meal or snack 15 minutes before taking home medications. Continue physical therapy. Follow-up at nuclear medicine specialist office at appointment as planned. Return to the emergency department experience new, concerning, or worsening symptoms. Prescriptions: Ondansetron Odt [Zofran Odt] 4 mg PO Q8HR PRN #21 tab PRN Reason: Nausea Is patient prescribed a controlled substance at d/c from ED?: No Referrals: Omid Christian MD [Primary Care Provider] - 1-2 days Time of Disposition: 18:07
[2021-11-25 17:13] LABS: Albumin 3.9 g/dL (3.5-5.0); Calcium 9.3 mg/dL (8.4-10.2); Magnesium 1.4 mg/dL (1.6-2.3); Potassium 3.9 mmol/L (3.5-5.1); Total Bilirubin 0.3 mg/dL (0.2-1.3); Total Protein 6.6 g/dL (6.3-8.2)
[2021-11-25 17:27] LABS: Basophils # (A) 0.1 k/uL (0-0.2); Basophils % (A) 1 %; Eosinophils # (A) 0.2 k/uL (0-0.7); Eosinophils % (A) 3 %; HCT 29.4 % (34.0-46.0); HGB 8.9 gm/dL (11.4-16.0); Hypochromasia Moderate; Lymphocytes # (A) 1.1 k/uL (1.0-4.8); Lymphocytes % (A) 17 %; MCH 27.6 pg (25.0-35.0); MCHC 30.3 g/dL (31.0-37.0); MCV 91.2 fL (80.0-100.0); Monocytes # (A) 0.3 k/uL (0-1.0); Monocytes % (A) 5 %; Neutrophils # (A) 4.5 k/uL (1.3-7.7); Neutrophils % (A) 72 %; Platelet Count 735 k/uL (150-450); RBC 3.22 m/uL (3.80-5.40); WBC 6.3 k/uL (3.8-10.6)
--- NOTE | 2021-11-25 17:33 | XR ---
EXAMINATION TYPE: XR chest 2V DATE OF EXAM: 11/25/2021 COMPARISON: 12/31/2020 HISTORY: Weakness TECHNIQUE: FINDINGS: There is no heart failure nor confluent pneumonic infiltrate. Costophrenic angles are clear . There are no hilar masses. Bony thorax is intact. The pulmonary vascularity is normal. IMPRESSION: Normal chest. No change.
[2021-11-25 17:41] LABS: Appearance,Urine Clear (Clear); Bilirubin,Urine Negative (Negative); Blood,Urine Negative (Negative); Color,Urine Yellow; Glucose,Urine (UA) Negative (Negative); Ketones,Urine Negative (Negative); Leukocyte Esterase,Urine Small (Negative); Mucus,Urine Rare /hpf; Nitrite,Urine Negative (Negative); PH, Urine 5.5 (5.0-8.0); Protein,Urine Trace (Negative); RBC,Urine 6 /hpf (0-5); Specific Gravity,Urine 1.029 (1.001-1.035); Squamous Epithelial Cell,Urine 1 /hpf (0-4); WBC,Urine 5 /hpf (0-5)
[2021-11-25 18:41] VITALS: BP 125/40; PULSE 72; RESP 18
== END 2021-11-25 18:41 | disposition home or self-care (01) ==
LOC: EC 14:12
DX: R53.1 Weakness (principal); R11.2 Nausea with vomiting, unspecified; R53.83 Other fatigue; E11.9 Type 2 diabetes mellitus without complications; K21.9 Gastro-esophageal reflux disease without esophagitis; E78.5 Hyperlipidemia, unspecified; M19.90 Unspecified osteoarthritis, unspecified site; E07.9 Disorder of thyroid, unspecified; Z20.822 Contact with and (suspected) exposure to COVID-19; Z96.641 Presence of right artificial hip joint; Z79.890 Hormone replacement therapy; Z79.899 Other long term (current) drug therapy; Z79.84 Long term (current) use of oral hypoglycemic drugs; Z88.5 Allergy status to narcotic agent; Z88.0 Allergy status to penicillin; Z88.2 Allergy status to sulfonamides; Z91.048 Other nonmedicinal substance allergy status; Z91.018 Allergy to other foods
CPT/HCPCS: 36415; 93005; 80053; 83735; 84484; 85025; 81001; 87635; 71046; 99285; 96374; 96361; J2405

== ENCOUNTER → 2022-11-24 | Outpatient (CLI) | payer MEDICARE ==
--- NOTE | 2022-11-24 17:53 | US ---
EXAMINATION TYPE: US kidneys/renal and bladder DATE OF EXAM: 11/24/2022 COMPARISON: CT abdomen pelvis 11/11/2021, renal ultrasound 05/08/2013 CLINICAL INDICATION: Female, 72 years old with history of N18.30 CHRONIC KIDNEY DISEASE, STAGE 3; EXAM MEASUREMENTS: Right Kidney: 10.1 x 3.9 x 4.6 cm Left Kidney: 10.9 x 5.1 x 4.6 cm Post Void Residual Volume: 30.79 mL Right Kidney: Minimal hydronephrosis. Left Kidney: wnl Bladder: wnl Bilateral Jets seen: No Normal Post Void Residual: Yes Minimal right hydronephrosis. No nephrolithiasis is seen. No masses are identified. Cortical medull samreen differentiation is maintained. The urinary bladder is anechoic. Bilateral ureteral jets are not seen. IMPRESSION: Minimal right hydronephrosis.
== END | disposition home or self-care (01) ==
LOC: RADUSWWP 14:42
PROVIDERS: ATTEND Family Medicine
DX: N13.30 Unspecified hydronephrosis (principal); N18.30 Chronic kidney disease, stage 3 unspecified
CPT/HCPCS: 76770

== ENCOUNTER → 2023-03-13 | Outpatient (CLI) | payer MEDICARE ==
--- NOTE | 2023-03-14 17:02 | MM ---
Reason for Exam: Screening (asymptomatic). Last mammogram was performed 1 year(s) and 8 month(s) ago. Patient History: Menarche at age 13. First Full-Term at age 31. Late child-bearing (after 31). Hysterectomy at age 50. Postmenopausal. Patient has history of breast feeding. Currently using Estrogen, beginning at age 60 for 10 years. Risk Values: [place] 5 year model risk: 2.4%. NCI Lifetime model risk: 6.6%. Prior Study Comparison: 10/03/2018 Bilateral Screening Mammogram, [facility]. 02/05/2020 Bilateral Screening Mammogram, [facility]. 07/07/2021 Bilateral Screening Mammogram, [facility]. Tissue Density: The breast tissue is heterogeneously dense. This may lower the sensitivity of mammography. Findings: Analyzed By CAD. Scar marker overlying the right breast. Benign gliosis calcifications are present. On the right, there is chronic nodularity, unchanged from 2021. In the left breast, located centrally on the CC view, there is an asymmetric density which is more defined. This may represent superimposition shadow but further evaluation is recommended. Otherwise, no significant change is seen. Overall Assessment: Incomplete: need additional imaging evaluation, BI-RAD 0 Management: Special View Mammogram of the left breast. Diagnostic Breast Ultrasound of the left breast. Additional views to include spot 3-D CC, 3-D CC rolled, and 3-D lateral views. Targeted left breast ultrasound if any persisting abnormality. [facility] will attempt to contact patient to return for supplemental views and ultrasound if indicated. Electronically signed and approved by: Kris Arambula M.D. Radiologist
== END | disposition home or self-care (01) ==
LOC: RADMAMWWP 09:38
PROVIDERS: ATTEND Family Medicine
DX: Z12.31 Encounter for screening mammogram for malignant neoplasm of breast (principal); Z78.0 Asymptomatic menopausal state
CPT/HCPCS: 77063; 77067

== ENCOUNTER → 2023-03-30 | Outpatient (CLI) | payer MEDICARE ==
--- NOTE | 2023-03-30 14:36 | MM ---
Reason for Exam: Additional evaluation requested from abnormal screening. Last screening mammogram was performed less than 1 month ago. Patient History: Menarche at age 13. First Full-Term at age 31. Late child-bearing (after 30). Hysterectomy at age 50. Postmenopausal. Patient has history of breast feeding. Currently using Estrogen, beginning at age 60 for 10 years. Risk Values: Lary 5 year model risk: 2.4%. NCI Lifetime model risk: 6.6%. Prior Study Comparison: 02/05/2020 Bilateral Screening Mammogram, [facility]. 07/07/2021 Bilateral Screening Mammogram, [facility]. 03/13/2023 Bilateral MG 3D screening mammo w/cad, [facility]. Tissue Density: Left: The breast tissue is heterogeneously dense. This may lower the sensitivity of mammography. Analyzed By CAD. Overall Assessment: Probably benign, BI-RAD 3 Management: Diagnostic Breast Ultrasound of the left breast in 6 months. Electronically signed and approved by: Franki Crespo D.O. Radiologis
== END | disposition home or self-care (01) ==
LOC: RADMAMWWP 14:08
PROVIDERS: ATTEND Family Medicine
DX: R92.332 Mammographic heterogeneous density, left breast (principal); Z78.0 Asymptomatic menopausal state
CPT/HCPCS: 77061; 77065

== ENCOUNTER → 2023-09-04 | Outpatient (CLI) | payer MEDICARE ==
--- NOTE | 2023-09-04 10:20 | USB ---
Reason for Exam: Follow-up at short interval from prior study. Patient History: Menarche at age 13. First Full-Term at age 31. Late child-bearing (after 31). Hysterectomy at age 50. Postmenopausal. Patient has history of breast feeding. Currently using Estrogen, beginning at age 60 for 10 years. Risk Values: Lary 5 year model risk: 2.4%. NCI Lifetime model risk: 6.3%. Technique: Method: Whole Breast Handheld. Prior Study Comparison: 07/07/2021 Bilateral Screening Mammogram, [facility]. 03/13/2023 Bilateral MG 3D screening mammo w/cad, [facility]. 03/30/2023 Left MG 3D work up w/cad , [facility]. Findings: The whole breast of the left breast, the axilla of the left breast and the retroareolar of the left breast were scanned. No solid masses identified. At the left 10:00 position 7 cm from the nipple there is a simple cyst noted measuring 3 x 3 mm. Overall Assessment: Benign, BI-RAD 2 Management: Screening Mammogram of both breasts in 6 months. A clinical breast exam by your physician is recommended on an annual basis and results should be correlated with mammographic findings. This exam should not preclude additional follow-up of suspicious palpable abnormalities. Results were given to the patient verbally at the time of exam. Electronically signed and approved by: Royer Sykes M.D. Radiologis
--- NOTE | 2023-09-04 10:55 | MM ---
Reason for Exam: Follow-up at short interval from prior study. Last screening mammogram was performed 6 month(s) ago. Patient History: Menarche at age 13. First Full-Term at age 31. Late child-bearing (after 30). Hysterectomy at age 50. Postmenopausal. Patient has history of breast feeding. Currently using Estrogen, beginning at age 60 for 10 years. Risk Values: Lary 5 year model risk: 2.4%. NCI Lifetime model risk: 6.3%. Prior Study Comparison: 06/21/2016 Screening Mammogram, [facility]. 07/23/2017 Screening Mammogram, [facility]. 10/03/2018 Bilateral Screening Mammogram, [facility] 02/05/2020 Bilateral Screening Mammogram, [facility]. 07/07/2021 Bilateral Screening Mammogram, [facility]. 03/13/2023 Bilateral MG 3D screening mammo w/cad, [facility]. 03/30/2023 Left MG 3D work up w/cad , [facility]. Tissue Density: Left: The breasts are heterogeneously dense, which may obscure small masses. Findings: Analyzed By CAD. Nodular density in the left 10:00 position. No evidence for distortion or skin thickening. No suspicious microcalcifications. Overall Assessment: Incomplete: need additional imaging evaluation, BI-RAD 0 Management: Diagnostic Breast Ultrasound of the left breast. . Results were given to the patient verbally at the time of exam. Patient should continue monthly self-breast exams. A clinical breast exam by your physician is recommended on an annual basis. This exam should not preclude additional follow-up of suspicious palpable abnormalities. Note on Lary scores and lifetime risk: 1. A Lary score greater than 3% is considered moderate risk. If this is the case, consider specialist referral to assess eligibility for a risk reducing agent. 2. If overall lifetime risk for the development of breast cancer is 20% or higher, the patient may qualify for future screening with alternating mammogram and breast MRI. Electronically signed and approved by: Royer Sykes M.D. Radiologis
== END | disposition home or self-care (01) ==
LOC: RADMAMWWP 09:34
PROVIDERS: ATTEND Family Medicine
DX: R92.332 Mammographic heterogeneous density, left breast (principal); R92.8 Other abnormal and inconclusive findings on diagnostic imaging of breast; Z78.0 Asymptomatic menopausal state
CPT/HCPCS: 77061; 77065

== ENCOUNTER → 2024-03-13 | Outpatient (CLI) | payer MEDICARE ==
--- NOTE | 2024-03-17 18:26 | MM ---
Reason for Exam: Screening (asymptomatic). Last screening mammogram was performed 12 month(s) ago. Patient History: Menarche at age 13. First Full-Term at age 31. Late child-bearing (after 30). Hysterectomy at age 50. Postmenopausal. Patient has history of breast feeding. Currently using Estrogen, beginning at age 60 for 10 years. Risk Values: Lary 5 year model risk: 2.4%. NCI Lifetime model risk: 6.3%. Prior Study Comparison: 03/13/2023 Bilateral MG 3D screening mammo w/cad, [facility]. 03/30/2023 Left MG 3D work up w/cad LT, [facility]. 09/04/2023 Left MG 3D diag mammo w/cad LT, [facility]. Tissue Density: The breasts are heterogeneously dense, which may obscure small masses. Findings: Analyzed By CAD. Central asymmetric density left cc view middle to posterior depth remains unchanged. A few scattered benign oil cyst calcifications are redemonstrated. Other areas of asymmetric density are also unchanged. Overall Assessment: Benign, BI-RAD 2 Management: Screening Mammogram of both breasts in 1 year. . Patient should continue monthly self-breast exams. A clinical breast exam by your physician is recommended on an annual basis. This exam should not preclude additional follow-up of suspicious palpable abnormalities. Note on Lary scores and lifetime risk: 1. A Lary score greater than 3% is considered moderate risk. If this is the case, consider specialist referral to assess eligibility for a risk reducing agent. 2. If overall lifetime risk for the development of breast cancer is 20% or higher, the patient may qualify for future screening with alternating mammogram and breast MRI. [facility], , 03/17/2024 6:22 PM. Electronically signed and approved by: rKis Arambula M.D. Radiologist
== END | disposition home or self-care (01) ==
LOC: RADMAMWWP 12:27
PROVIDERS: ATTEND Family Medicine
DX: Z12.31 Encounter for screening mammogram for malignant neoplasm of breast (principal); Z78.0 Asymptomatic menopausal state; R92.333 Mammographic heterogeneous density, bilateral breasts
CPT/HCPCS: 77063; 77067